=== PATIENT | female | born 1950 | race American Indian/Alaskan Native ===

== ENCOUNTER 2018-12-08 13:03 | Emergency (ER) | payer MEDICAID | END 2018-12-08 15:22 | disposition home or self-care (01) | LOC: C.ER 13:03 ==

== ENCOUNTER 2019-01-10 09:02 | Observation (INO) | payer MEDICAID, OTHER ==
[2019-01-10 09:03] VITALS: BMI 36.6
[2019-01-10 09:23] VITALS: RESP 20
[2019-01-10] MEDS ORDERED: Iohexol 240 (50 ml) PO STA (09:41)
[2019-01-10] MEDS ORDERED: Iohexol 240 (50 ml) ONE (10:22)
[2019-01-10] MEDS ORDERED: Sodium Chloride 0.9% 1,000 ML IV ONE ×2 (10:26→14:12)
[2019-01-10] MEDS ORDERED: Sodium Chloride 0.9% 1,000 ML ONE ×2 (10:34→14:18)
--- NOTE | 2019-01-10 10:39 | C.PDOC ---
History Of Present Illness 68 year old female presents to the ED for evaluation of worsening abdominal pain and distension for the past 2-3 months. She reports history of uterine/ovarian cancer, diagnosed 1 year ago, which recently was found to have spread to her colon. Patient reports decreased appetite for the past week and has been feeling constipated and generally weak. Also states she has been feeling increasingly dehydrated. She denies any difficulty swallowing but attributes her decreased PO intake to poor appetite. She denies any chest pain, dizziness, nausea, vomiting, diarrhea, calf pain/swelling, or other complaints. Time Seen by Provider: 01/10/19 09:24 Chief Complaint (Nursing): Abdominal Pain History Per: Patient History/Exam Limitations: no limitations Onset/Duration Of Symptoms: Days Current Symptoms Are (Timing): Still Present Associated Symptoms: Loss Of Appetite, Constipation, Other (Bloating) Last Bowel Movement: Today Past Medical History Reviewed: Historical Data, Nursing Documentation, Vital Signs Vital Signs: Last Vital Signs Temp 99.2 F 01/10/19 09:17 Pulse 124 H 01/10/19 09:17 Resp 20 01/10/19 09:17 BP 128/81 01/10/19 09:17 Pulse Ox 97 01/10/19 09:17 - Medical History PMH: Malignancy (Ovarian/Uterine CA) Other Surgeries: Hysterectomy Family History: States: Unknown Family Hx - Social History Hx Alcohol Use: No Hx Substance Use: No - Immunization History Hx Tetanus Toxoid Vaccination: No Hx Influenza Vaccination: Yes Hx Pneumococcal Vaccination: Yes Review Of Systems Except As Marked, All Systems Reviewed And Found Negative. Constitutional: Positive for: Weakness (generalized). Negative for: Fever, Chills Cardiovascular: Negative for: Chest Pain Respiratory: Negative for: Cough, Shortness of Breath Gastrointestinal: Positive for: Abdominal Pain (and bloating), Constipation, Other (Decreased appetite). Negative for: Vomiting, Diarrhea Genitourinary: Negative for: Dysuria, Frequency Skin: Negative for: Rash Neurological: Negative for: Change in Speech, Confusion, Headache, Dizziness Physical Exam - Physical Exam Appears: No Acute Distress, Chronically Ill Skin: Warm, Dry, No Rash Head: Atraumatic, Normacephalic Eye(s): bilateral: Normal Inspection, PERRL, EOMI Oral Mucosa: Dry Throat: No Erythema, No Exudate Neck: Normal ROM, Supple Chest: Symmetrical Cardiovascular: Rhythm Regular, No Friction Rub, No Murmur Respiratory: Normal Breath Sounds, No Accessory Muscle Use, No Wheezing Gastrointestinal/Abdominal: Soft, Tenderness (mild diffuse), Mass (+ palpable mass in periumbilical region), Distention (abdomen is moderately distended) Back: No CVA Tenderness, No Vertebral Tenderness Extremity: Normal ROM, No Tenderness, No Swelling Extremity: Bilateral: Atraumatic, No Pedal Edema, Normal Color And Temperature Pulses: Left Dorsalis Pedis: Normal, Right Dorsalis Pedis: Normal Neurological/Psych: Oriented x3, Normal Speech, Normal Motor Gait: Steady ED Course And Treatment - Laboratory Results Result Diagrams: 01/10/19 10:46 01/10/19 10:46 O2 Sat by Pulse Oximetry: 97 (RA) Pulse Ox Interpretation: Normal - CT Scan/US CT Abdomen/Pelvis Other Rad Studies (CT/US): Read By Radiologist, Radiology Report Reviewed CT/US Interpretation: Accession No. : [id number]. Patient Name / ID : LINCOLN SHOOK / [id number]. Exam Date : 01/10/2019 13:11:34 ( Approved ). Study Comment : Sex / Age : F / 68Y. Creator : Paola Le. Dictator : Terrence Espinoza MD. Machine Group Leader : Technical Administrative Assistant : Terrence Espinoza MD. Approver2 : Report Date : 01/10/2019 13:38:22. My Comment : . Date of service: 01/10/2019. PROCEDURE: CT Abdomen and Pelvis with contrast. HISTORY: distended, diffuse pain, constipation, r/o obstruc. COMPARISON: None. TECHNIQUE: Contrast dose: Radiation dose: Total exam DLP = 1174.44 mGy-cm. This CT exam was performed using one or more of the following dose reduction techniques: Automated exposure control, adjustment of the mA and/or kV according to patient size, and/or use of iterative reconstruction technique. FINDINGS: LOWER THORAX: Unremarkable. LIVER: 7 millimeter left hepatic hypodensity, nonspecific. No gross lesion or ductal dilatation. GALLBLADDER AND BILE DUCTS: Gallstones. PANCREAS: Unremarkable. No gross l esion or ductal dilatation. SPLEEN: Unremarkable. ADRENALS: Unremarkable. No mass. KIDNEYS AND URETERS: Mild bilateral caliectasis, right greater than left with a 2.2 centimeter right upper pole renal cyst. VASCULATURE: Unremarkable. No aortic aneurysm. No aortic atherosclerotic calcification or mural plaque present. BOWEL: Unremarkable. No obstruction. No gross mural thickening. APPENDIX: Normal appendix. PERITONEUM: Abdominal ascites. 5.3 centimeter long cystic lesion in the left hemipelvis anterior to the left psoas muscle. Multiple mesenteric masses measuring up to 6.2 centimeters in the left upper quadrant, as well as large anterior abdominal wall cavitary masses measuring up to 9.3 x 5.8 centimeters in conglomerate size protruding through the anterior abdominal wall hernia defect. LYMPH NODES: Unremarkable. No enlarged lymph nodes. BLADDER: Unremarkable. REPRODUCTIVE: Status post hysterectomy and bilateral salpingo oophorectomy with an 8.3 x 7.3 centimeter cystic complex mass in the pelvis which could represent residual/recurrent tumor. BONES: No acute fracture. OTHER FINDINGS: None. IMPRESSION: Multiple intraperitoneal masses and ascites consistent with peritoneal carcinomatosis. Large pelvic mass measuring 7.3 x 8.3 centimeters in the postoperative site status post hysterectomy. No bowel obstruction. Medical Decision Making Medical Decision Making: Initial Plan: - Blood work - Urinalysis - CT Abd/Pelvis with contrast - 4 mg IV Zofran - 1L IV fluids - Reassess Reassessment:Patient resting comfortably in bed and tolerating PO. 1429: 's service called. 1451: Called Dr. Wilburn. Dr. Wilburn answered and agreed to admit patient. Disposition - Disposition Disposition: HOSPITALIZED Disposition Time: 14:00 Condition: GUARDED - POA Present On Arrival: None - Clinical Impression Clinical Impression: Abdominal pain, Ascites, Weakness - PA / SECURITY AMBASSADOR / Resident Statement MD/DO has reviewed & agrees with the documentation as recorded. - Scribe Statement The provider has reviewed the documentation as recorded by the Madhav Mcmahon All medical record entries made by the Madhav were at my direction and personally dictated by me. I have reviewed the chart and agree that the record accurately reflects my personal performance of the history, physical exam, medical decision making, and the department course for this patient. I have also personally directed, reviewed, and agree with the discharge instructions and disposition.
[2019-01-10 10:57] LABS: BASO % 0.3 % (0.0-2.0); EOS % 0.3 % (0.0-4.0); HEMOGLOBIN 9.5 g/dL (11.0-16.0); LYMPH # 0.3 K/uL (1.0-4.3); LYMPH % 3.2 % (20.0-40.0); MEAN CELL VOLUME 83.3 fL (81.0-99.0); MEAN CORPUSCULAR HEMOGLOBIN 28.1 pg (27.0-31.0); MEAN CORPUSCULAR HGB CONC 33.8 g/dL (33.0-37.0); MEAN PLATELET VOLUME 7.5 fL (7.2-11.7); MONO # 0.6 K/uL (0.0-0.8); MONO % 7.2 % (0.0-10.0); NEUT # 7.9 K/uL (1.8-7.0); PLATELET COUNT 154 K/uL (130-400); RBC 3.39 Mil/uL (3.80-5.20); RED CELL DISTRIBUTION WIDTH 17.3 % (11.5-14.5); WHITE BLOOD COUNT 8.8 K/uL (4.8-10.8)
[2019-01-10 11:17] LABS: ALB/GLOB RATIO 0.9 (1.0-2.1); ALBUMIN 3.3 g/dL (3.5-5.0); ANISOCYTOSIS SLIGHT; AST/SGOT 52 U/L (14-36); BANDS 6 % (0-2); BLOOD UREA NITROGEN 15 mg/dL (7-17); CALCIUM 9.1 mg/dl (8.6-10.4); GFR NON-AFRICAN AMERICAN > 60; LIPASE 10 U/L (23-300); LYMPHOCYTE 6 % (20-40); MONOCYTE 8 % (0-10); NEUTROPHIL 80 % (50-75); NUCLEATED RED BLOOD CELL 1 % (0-0); PLATELET ESTIMATE NORMAL (NORMAL); TOTAL CELLS COUNTED 100
[2019-01-10 11:18] LABS: OVALOCYTES SLIGHT
[2019-01-10 11:28] LABS: ALT/SGPT 44 U/L (9-52)
[2019-01-10] MEDS ORDERED: Iodixanol 320 MG/ML 100 ML BOTTLE IV ONE (12:19)
[2019-01-10] MEDS ORDERED: Morphine 4 MG/ML VIAL ONE (12:19)
--- NOTE | 2019-01-10 14:10 | CT ---
Date of service: 01/10/2019 PROCEDURE: CT Abdomen and Pelvis with contrast HISTORY: distended, diffuse pain, constipation, r/o obstruc COMPARISON: None. TECHNIQUE: Contrast dose: Radiation dose: Total exam DLP = 1174.44 mGy-cm. This CT exam was performed using one or more of the following dose reduction techniques: Automated exposure control, adjustment of the mA and/or kV according to patient size, and/or use of iterative reconstruction technique. FINDINGS: LOWER THORAX: Unremarkable. LIVER: 7 millimeter left hepatic hypodensity, nonspecific. No gross lesion or ductal dilatation. GALLBLADDER AND BILE DUCTS: Gallstones. PANCREAS: Unremarkable. No gross lesion or ductal dilatation. SPLEEN: Unremarkable. ADRENALS: Unremarkable. No mass. KIDNEYS AND URETERS: Mild bilateral caliectasis, right greater than left with a 2.2 centimeter right upper pole renal cyst. VASCULATURE: Unremarkable. No aortic aneurysm. No aortic atherosclerotic calcification or mural plaque present. BOWEL: Unremarkable. No obstruction. No gross mural thickening. APPENDIX: Normal appendix. PERITONEUM: Abdominal ascites. 5.3 centimeter long cystic lesion in the left hemipelvis anterior to the left psoas muscle. Multiple mesenteric masses measuring up to 6.2 centimeters in the left upper quadrant, as well as large anterior abdominal wall cavitary masses measuring up to 9.3 x 5.8 centimeters in conglomerate size protruding through the anterior abdominal wall hernia defect. LYMPH NODES: Unremarkable. No enlarged lymph nodes. BLADDER: Unremarkable. REPRODUCTIVE: Status post hysterectomy and bilateral salpingo oophorectomy with an 8.3 x 7.3 centimeter cystic complex mass in the pelvis which could represent residual/recurrent tumor. BONES: No acute fracture. OTHER FINDINGS: None. IMPRESSION: Multiple intraperitoneal masses and ascites consistent with peritoneal carcinomatosis. Large pelvic mass measuring 7.3 x 8.3 centimeters in the postoperative site status post hysterectomy. No bowel obstruction.
[2019-01-10 15:34] LABS: B-TYPE NATRIURETIC PEPTIDE 191 pg/mL (0-900)
[2019-01-10] MEDS ORDERED: Oxycodone/Acetaminophen 5/325 mg Tab PO PRN (17:54)
[2019-01-11] MEDS: Enoxaparin 40 mg Syringe SC SCH (09:46)
--- NOTE | 2019-01-11 10:53 | CP.PCM.PCO ---
Physician Communication Note - Physician Communication Note Physician Communication Note: I spoke with Dr. Craig covering Dr. Wilburn, requesting for change of
--- NOTE | 2019-01-11 12:07 | CP.PCM.HP ---
<Randy Butler - Last Filed: 01/11/19 15:21> History of Present Illness - History of Present Illness History of Present Illness: HOSPITALIST SERVICE HPI: 68F pmhx of Ovarian CA w/ Mets admitted for abdominal distention and worsening abdominal pain over the last 2 months. She first noticed this a few months ago and was told by her Oncologist Dr Ryan @ [facility] that it is due to the lymphnodes in her abdomen. Patient has been taking percocet and a fentan yl patch for pain control associated with her cancer. She has been limiting herself to just a liquid diet but now would like to try solid foods. Pt also complains of mild vaginal bleeding that is chronic sin 2016. All of her medical care was at [facility] in [facility]. Pt was diagnosed with small uterine fibroids many years ago and was monitoring them intermittently. In 2016 she was diagnosed with Ovarian Ca and had a hysterectomy. Pt underwent her first round of chemo this past month. Pt says she has always been compliant with medical follow ups and was never with any chronic illness. has had 3 normal colonoscopies and many normal mammograms in the past as per pt. Denies past abnormal pap smears. ROS: Pos + abd pain/distention, chronic vaginal bleeding, hx of cancer, recent chem, liquid diet, weight gain Neg- CP, SOB, FC, NV, blood in urine/stool, syncope, numbness, weakness, hair loss, constipation PMD: Dr Ryan heme/onc @ [facility] PMHx: Ovarian Ca, Carcinomatosis PSx: Hysterectomy Nov 2015 SocHx: denies smoking etoh or drug use, Aller: NKDA Home Rx: none except chemo- doesn't know the name Code Status: wishes to discuss with her family and palliative care Daughter: Orin [phone] Present on Admission - Present on Admission Any Indicators Present on Admission: No Review of Systems - Review of Systems All systems: reviewed and no additional remarkable complaints except (as per HPI) Past Patient History - Past Social History Smoking Status: Never Smoked - GENITOURINARY/GYNECOLOGICAL Hx Genitourinary Disorders: Yes Hx Uterine Cancer: Yes Other/Comment: VULVA CA - PSYCHIATRIC Hx Substance Use: No - SURGICAL HISTORY Hx Surgeries: Yes Hx Hysterectomy: Yes Other/Comment: ectopic 1981 - ANESTHESIA Hx Anesthesia: Yes Hx Anesthesia Reactions: No Hx Malignant Hyperthermia: No Meds Allergies/Adverse Reactions: Allergies Allergy/AdvReac Type Severity Reaction Status Date / Time No Known Allergies Allergy Verified 01/10/19 09:23 Physical Exam - Constitutional Appears: No Acute Distress, Chronically Ill - Head Exam Head Exam: ATRAUMATIC, NORMAL INSPECTION - Eye Exam Eye Exam: EOMI, Normal appearance, PERRL. absent: Periorbital swelling, Scleral icterus Pupil Exam: NORMAL ACCOMODATION, PERRL - ENT Exam ENT Exam: Mucous Membranes Moist, Normal Exam - Neck Exam Neck exam: Positive for: Normal Inspection. Negative for: Lymphadenopathy, Tenderness, Thyromegaly - Respiratory Exam Respiratory Exam: Clear to Auscultation Bilateral. absent: Wheezes, Respiratory Distress - Cardiovascular Exam Cardiovascular Exam: RRR, +S1, +S2 - GI/Abdominal Exam GI & Abdominal Exam: Distended (mild fluid wave, large palpable mas noted in v entral hernia, mobile, midline above umbilicus), Organomegaly. absent: Pulsatile Mass, Rebound, Rigid Additional comments: Ultrasound: No large fluid collections noted - Extremities Exam Extremities exam: Positive for: normal inspection, pedal pulses present. Negative for: joint swelling - Back Exam Back exam: absent: paraspinal tenderness - Neurological Exam Neurological exam: Alert, CN II-XII Intact, Oriented x3 - Psychiatric Exam Psychiatric exam: Anxious - Skin Skin Exam: Dry, Intact, Normal Color, Warm Results - Vital Signs Recent Vital Signs: Last Vital Signs Temp 97.9 F 01/11/19 07:00 Pulse 100 H 01/11/19 07:00 Resp 20 01/11/19 07:00 BP 148/83 01/11/19 07:00 Pulse Ox 95 01/11/19 07:00 - Labs Result Diagrams: 01/10/19 10:46 01/10/19 10:46 Labs: Laboratory Results - last 24 hr 01/10/19 10:46 Sodium 135 Potassium 4.2 Chloride 95 L Carbon Dioxide 32 H Anion Gap 13 BUN 15 Creatinine 0.8 Est GFR ( Amer) > 60 Est GFR (Non-Af Amer) > 60 Random Glucose 130 H Calcium 9.1 Total Bilirubin 0.6 AST 52 H D ALT 44 Alkaline Phosphatase 201 H D Troponin I < 0.0120 NT-Pro-B Natriuret Pep 191 Total Protein 7.0 Albumin 3.3 L Globulin 3.8 Albumin/Globulin Ratio 0.9 L Lipase 10 L Assessment & Plan - Assessment and Plan (Free Text) Assessment: 68F pmhx of Ovarian Ca admitted for abdominal pain with distention Plan: Abdominal Pain w/ Distention -Fentanyl Patch -Percocet q4 PRN -1/2 NS @50 -Zofran 4mg Q4 IVP -Palliative Care consulted -Dr Kemp Heme/Onc consulted: f/u recs -CT Abd Pelv w/ Cont: Carcinomatosis w/ multiple large masses, largest is 9x6cm protruding through ventral hernia, others including 8x7cm and a 6cm -Bedside U/S: no fluid collections seen -CXR: f/u -f/u CA antigen levels and AM Labs -for CT Head Neck Chest w/ contrast tmw @ 4pm -advancing diet as tolerated Ovarian Cancer with Metastasis -Dr Kemp Consulted f/u recs -f/u with her home Heme/Onc Dr Ryan on chemo regimen -f/u with Palliative Care -continue pain control PPx -Lovenox 40 daily -Regular diet Dispo: f/u with daughter Orin, Dr Ryan, for CT w/ contrast tmrw [facility] PGY1 d/w Dr Bojorquez <George Bojorquez H - Last Filed: 01/11/19 16:16> Results - Vital Signs Recent Vital Signs: Last Vital Signs Temp 98.2 F 01/11/19 15:00 Pulse 102 H 01/11/19 15:00 Resp 20 01/11/19 15:00 BP 131/81 01/11/19 15:00 Pulse Ox 95 01/11/19 15:00 - Labs Result Diagrams: 01/10/19 10:46 01/10/19 10:46 Attending/Attestation - Attestation I have personally seen and examined this patient.: Yes I have fully participated in the care of the patient.: Yes I have reviewed all pertinent clinical information: Yes Notes (Text): Medical attending: Patient was seen and examined by me. Agree with the above note by the resident The patient was crying when we came and spoke to her and we spoke to her at length Patient was a transfer to the hospitalist service because she did not have insurance Initially I was told there was ascities and she would need a paracentesis however I reviewed the CT of the abdomen and there is minimal ascities fluid and instead the patient has several very large and suspicious abdominal mass. We also checked with a bedside ultrasound and there is minial abdominal fluid Per discussion with the patient she was being treated in [place] for ovarian CA. And later the charter boat operator oncologist there was able to get back to us and explained that the prognosis is very poor She has never had an admission to [facility] so will also check a CT of the chest and CT of the neck and Head tomorrow We are getting a palliative care consult to talk to the patient about DNR/DNI Family was notified George Bojorquez
[2019-01-11] MEDS: Oxycodone/Acetaminophen 5/325 mg Tab PO PRN ×2 (13:45→22:06)
[2019-01-11] MEDS ORDERED: Sodium Chloride 0.45% 1,000 ML IV ONE (14:28)
--- NOTE | 2019-01-11 14:45 | RAD ---
Date of service: 01/11/2019 HISTORY: admission COMPARISON: No prior. FINDINGS: LUNGS: No active pulmonary disease. PLEURA: No significant pleural effusion identified, no pneumothorax apparent. CARDIOVASCULAR: No atherosclerotic calcification present No radiographic findings to suggest acute or significant cardiovascular disease. Venous access catheter in satisfactory position. OSSEOUS STRUCTURES: No significant abnormalities. VISUALIZED UPPER ABDOMEN: Normal. OTHER FINDINGS: None. IMPRESSION: No active disease. Satisfactory position of recently placed venous access catheter.
[2019-01-12 06:39] LABS: BASO % 0.3 % (0.0-2.0); EOS % 0.7 % (0.0-4.0); HEMOGLOBIN 8.4 g/dL (11.0-16.0); LYMPH # 0.5 K/uL (1.0-4.3); LYMPH % 7.1 % (20.0-40.0); MEAN CELL VOLUME 82.3 fL (81.0-99.0); MEAN CORPUSCULAR HEMOGLOBIN 27.5 pg (27.0-31.0); MEAN CORPUSCULAR HGB CONC 33.4 g/dL (33.0-37.0); MEAN PLATELET VOLUME 7.7 fL (7.2-11.7); MONO # 0.7 K/uL (0.0-0.8); NEUT # 5.6 K/uL (1.8-7.0); NEUT % 81.9 % (50.0-75.0); NRBC % 0.2 % (0.0-2.0); PLATELET COUNT 159 K/uL (130-400); RBC 3.04 Mil/uL (3.80-5.20); RED CELL DISTRIBUTION WIDTH 17.6 % (11.5-14.5); WHITE BLOOD COUNT 6.9 K/uL (4.8-10.8)
[2019-01-12 07:16] LABS: SQUAMOUS EPITHIAL < 1 /hpf (0-5); URINE BACTERIA MANY (<OCC); URINE BILIRUBIN NEGATIVE (NEGATIVE); URINE BLOOD 2+ (NEGATIVE); URINE CLARITY Hazy (Clear); URINE COLOR Amber (YELLOW); URINE GLUCOSE (UA) NORMAL (Normal); URINE LEUKOCYTE ESTERASE 3+ Leu/uL (Negative); URINE PROTEIN 2+ mg/dL (NEGATIVE); URINE UROBILINOGEN NORMAL mg/dL (0.2-1.0); WBC CLUMPS MOD /hpf
[2019-01-12 07:27] LABS: ALB/GLOB RATIO 0.8 (1.0-2.1); ALT/SGPT < 6 U/L (9-52); AST/SGOT 59 U/L (14-36); BLOOD UREA NITROGEN 13 mg/dL (7-17); CALCIUM 8.8 mg/dl (8.6-10.4); GFR NON-AFRICAN AMERICAN > 60
--- NOTE | 2019-01-12 07:51 | CP.PCM.PN ---
<Randy Butler - Last Filed: 01/12/19 16:38> Subjective - Date & Time of Evaluation Date of Evaluation: 01/12/19 Time of Evaluation: 07:51 - Subjective Subjective: HOSPITALIST SERVICE Pt s/e at bedside, complains of persistent abdominal pain Objective - Vital Signs/Intake and Output Vital Signs (last 24 hours): Temp Pulse Resp BP Pulse Ox 98.3 F 107 H 20 122/75 100 01/12/19 07:36 01/12/19 07:36 01/12/19 07:36 01/12/19 07:36 01/12/19 07:36 Intake and Output: 01/12/19 01/12/19 06:59 18:59 Intake Total 640 Balance 640 - Medications Medications: Current Medications Enoxaparin Sodium (Lovenox) 40 mg SC DAILY [facility] Last Admin: 01/11/19 09:46 Dose: 40 mg Fentanyl (Duragesic) 1 patch TD Q72H [facility] Last Admin: 01/10/19 18:37 Dose: 1 patch Sodium Chloride (Sodium Chloride 0.45%) 1,000 mls @ 50 mls/hr IV .Q20H ONE Stop: 01/12/19 10:27 Last Admin: 01/11/19 14:42 Dose: 50 mls/hr Ondansetron HCl (Zofran Inj) 4 mg IVP Q4 PRN PRN Reason: Nausea/Vomiting Oxycodone/Acetaminophen (Percocet 5/325 Mg Tab) 1 tab PO Q4 PRN PRN Reason: Pain, moderate (4-7) Stop: 01/14/19 16:01 Last Admin: 01/11/19 22:06 Dose: 1 tab - Labs Labs: 01/12/19 06:36 01/12/19 06:36 - Additional Findings Additional findings: - Constitutional Appears: No Acute Distress, Chronically Ill - Head Exam Head Exam: ATRAUMATIC, NORMAL INSPECTION - Eye Exam Eye Exam: EOMI, Normal appearance, PERRL. absent: Periorbital swelling, Scleral icterus Pupil Exam: NORMAL ACCOMODATION, PERRL - ENT Exam ENT Exam: Mucous Membranes Moist, Normal Exam - Neck Exam Neck exam: Positive for: Normal Inspection. Negative for: Lymphadenopathy, Tenderness, Thyromegaly - Respiratory Exam Respiratory Exam: Clear to Auscultation Bilateral. absent: Wheezes, Respiratory Distress - Cardiovascular Exam Cardiovascular Exam: RRR, +S1, +S2 - GI/Abdominal Exam GI & Abdominal Exam: Distended (mild fluid wave, large palpable mas noted in ventral hernia, mobile, midline above umbilicus), Organomegaly. absent: Pulsatile Mass, Rebound, Rigid Additional comments: Ultrasound: No large fluid collections noted - Extremities Exam Extremities exam: Positive for: normal inspection, pedal pulses present. Negative for: joint swelling - Back Exam Back exam: absent: paraspinal tenderness - Neurological Exam Neurological exam: Alert, CN II-XII Intact, Oriented x3 - Psychiatric Exam Psychiatric exam: Anxious - Skin Skin Exam: Dry, Intact, Normal Color, Warm Assessment and Plan - Assessment and Plan (Free Text) Assessment: 68F pmhx of Ovarian Ca admitted for abdominal pain with distention Plan: Abdominal Pain w/ Distention -Fentanyl Patch -Oxycodone 10mg q4 PRN -Tylenol 325mg q4 PRN -1/2 NS @50 -Zofran 4mg Q4 IVP -Palliative Care consulted -Dr Kemp Heme/Onc consulted: f/u recs -CT Abd Pelv w/ Cont: Carcinomatosis w/ multiple large masses, largest is 9x6cm protruding through ventral hernia, others including 8x7cm and a 6cm -Bedside U/S: no fluid collections seen -CXR: no active disease, portacath in place -f/u CA antigen levels and AM Labs -for CT Head Neck Chest w/ contrast today @ 4pm -advancing diet as tolerated Ovarian Cancer with Metastasis -Dr Kemp Consulted f/u recs -home Heme/Onc Dr Ryan on chemo regimen Pt was dx with Uterine Carncinosarcoma had tried lipozomal doxirubicin-doxil , however this is likely only a palliative measure, this was only a "stealth" treatment at 75% of therapeutic dose. Patient was previously seen and was told to consider hospice care. Pt wanted to try one round of therapy, Onc agreed and would attempt one round to see if epithelial lesions would shrink for comfort measures. please contact Dr Ryan upon discharge for recs -Palliative Care consulted: pt is still full code -continue pain control PPx -Lovenox 40 daily -Regular diet Dispo: CT w/ contrast today, f/u results and possible home comfort care upon dc [facility] PGY1 d/w Dr Bojorquez <George Bojorquez H - Last Filed: 01/12/19 17:14> Objective - Vital Signs/Intake and Output Vital Signs (last 24 hours): Temp Pulse Resp BP Pulse Ox 99 F 111 H 20 128/74 98 01/12/19 16:00 01/12/19 16:00 01/12/19 16:00 01/12/19 16:00 01/12/19 16:00 Intake and Output: 01/12/19 01/12/19 06:59 18:59 Intake Total 640 750 Balance 640 750 - Medications Medications: Current Medications Acetaminophen (Tylenol 325mg Tab) 325 mg PO Q4 PRN PRN Reason: Pain, moderate (4-7) Enoxaparin Sodium (Lovenox) 40 mg SC DAILY [facility] Last Admin: 01/12/19 11:15 Dose: 40 mg Fentanyl (Duragesic) 1 patch TD Q72H [facility] Last Admin: 01/10/19 18:37 Dose: 1 patch Ceftriaxone Sodium 1 gm/ (Sodium Chloride) 100 mls @ 100 mls/hr IVPB DAILY [facility]; Protocol Lactulose (Enulose) 20 gm PO ONCE ONE Stop: 01/13/19 13:31 Ondansetron HCl (Zofran Inj) 4 mg IVP Q4 PRN PRN Reason: Nausea/Vomiting Oxycodone HCl (Oxycontin Extended Release Tab) 10 mg PO Q4 PRN PRN Reason: Pain, severe (8-10) Stop: 01/15/19 13:21 - Labs Labs: 01/12/19 06:36 01/12/19 06:36 Attending/Attestation - Attestation I have personally seen and examined this patient.: Yes I have fully participated in the care of the patient.: Yes I have reviewed all pertinent clinical information, including history, physical exam and plan: Yes Notes (Text): 01/12/19 16:59 Medical attending: Patient was seen and examined by me. Agree with the above note by the resident The patient was not as anxious or tearful like she was yesterday. She explained that she still had abominal pain - and so we made further increases of the pain medication. Also we are pending the CT scan of the head, neck and of the chest to see if there has been additional spread of the cancer The overall prognosis is not good. Patient is aware of this. Palliative care evaluation, hopefully hospice since the cancer is so advanced George Bojorquez
[2019-01-12] MEDS ORDERED: Tmp-Smz 800 mg-160 mg DS Tab PO SCH (10:00)
[2019-01-12 10:22] LABS: ANISOCYTOSIS SLIGHT; BANDS 6 % (0-2); LYMPHOCYTE 4 % (20-40); MONOCYTE 8 % (0-10); NEUTROPHIL 82 % (50-75); PLATELET ESTIMATE NORMAL (NORMAL); TOTAL CELLS COUNTED 100
[2019-01-12 10:23] LABS: HYPOCHROMIC SLIGHT
--- NOTE | 2019-01-12 10:43 | CP.PCM.CON ---
History of Present Illness - History of Present Illness History of Present Illness: Palliative consult requested by Doctor Carrie for goals of care discussion Patient is a 68 yo female admitted from home with worsening abdominal pain and distention. These symptoms begun about 2 moths ago but got worse over time. Patient reported loss of appetite X 1 week, and feeling dehydrated. Patient has experienced vaginal bleeding which is subsiding after the last chemo Tx this week. On admission Hb9.5 and 8.4 today. Patient was treated last year with chemo Tx and radiation therapy for newly diagnosed uterine/ovarian cancer. Cancer reoccurred and patient is treated with new session of Chemo Tx. 1st dose of chemo was this week, just prior to admission. Patient is treated by her Oncologist in [place]. She would like her record to be transferred to [facility] for continuing treatment here. CT abdomen: large pelvic mass, multiple intraperitoneal masses PMH: ovarian/uterine cancer with mets to liver, diagnosed last year, S/P chemo and radiation Tx Soc. Hx: single, unemployed, has no health insurance, lives at home with adult children, children work , patient is home alone for most of the day Fam. Hx: denies Hx of cancer Review of Systems - Constitutional Constitutional: Fatigue, Weakness - EENT Eyes: absent: As Per HPI, Blind Spots, Blurred Vision, Change in Vision, Decreased Night Vision, Diplopia, Discharge, Dry Eye, Exophthalmos, Floaters, Irritation, Itchy Eyes, Loss of Peripheral Vision, Pain, Photophobia, Requires Corrective Lenses, Sees Flashes, Spots in Vision, Tunnel Vision, Other Visual Disturbances, Loss of Vision, Other Ears: absent: As Per HPI, Decreased Hearing, Ear Discharge, Ear Pain, Tinnitus, Abnormal Hearing, Disequilibrium, Dizziness, Other Nose/Mouth/Throat: Dry Mouth Additional comments: lost food tasting ability - Breasts Breasts: absent: As Per HPI, Change in Shape, Mass, Pain, Nipple Discharge, Nipple Inversion, Skin Changes, Swelling, Other - Cardiovascular Cardiovascular: absent: As Per HPI, Acrocyanosis, Chest Pain, Chest Pain at Rest, Chest Pain with Activity, Claudication, Diaphoresis, Dyspnea, Dyspnea on Exertion, Edema, Irregular Heart Rhythm, Pain Radiating to Arm/Neck/Jaw, Leg Edema, Leg Ulcers, Lightheadedness, Orthopnea, Palpitations, Paroxysmal Nocturnal Dyspnea, Pedal Edema, Radiating Pain, Rapid Heart Rate, Slow Heart Rate, Syncope, Other - Respiratory Respiratory: absent: As Per HPI, Cough, Dyspnea, Hemoptysis, Dyspnea on Exertion, Wheezing, Snoring, Stridor, Pain on Inspiration, Chest Congestion, Excessive Mucous Production, Change in Mucous Color, Pain with Coughing, Other - Gastrointestinal Gastrointestinal: Bloating, Change in Bowel Habits - Genitourinary Genitourinary: absent: As Per HPI, Change in Urinary Stream, Difficulty Urinating, Dysuria, Flank Pain, Hematuria, Pyuria, Nocturia, Urinary Incontinence, Urinary Frequency, Urinary Hesitance, Urinary Urgency, Voiding Freq/Small Amts, Freq UTI, Hx Renal/Bladder Calculi, Hx /Renal Surgery, Bladder Distension, Other - Reproductive: Female Reproductive:Female: Post Menopausal, Abnormal Vaginal Bleeding - Menstruation Menstruation: Post Menopausal, Abnormal Vaginal Bleeding - Musculoskeletal Musculoskeletal: Muscle Weakness - Integumentary Integumentary: Dry Skin - Neurological Neurological: absent: As Per HPI, Abnormal Gait, Abnormal Hearing, Abnormal Movements, Abnormal Speech, Behavioral Changes, Burning Sensations, Confusion, Convulsions, Disequilibrium, Dizziness, Numbness, Focal Weakness, Frequent Falls, Headaches, Lack of Coordination, Loss of Vision, Memory Loss, Paresthesias, Radicular Pain, Restless Legs, Sensory Deficit, Syncope, Tingling, Tremor, Vertigo, Weakness, Other Visual Disturbances, Other - Psychiatric Psychiatric: Anxiety, Depression, Hopelessness - Endocrine Endocrine: absent: As Per HPI, Change in Body Appearance, Change in Libido, Cold Intolorance, Deepening of Voice, Excessive Sweating, Fatigue, Flushing, Heat Intolorance, Increase in Ring/Shoe/Hat Size, Palpitations, Polydipsia, Polyphagia, Polyuria, Other - Hematologic/Lymphatic Hematologic: Easy Bleeding Additional comments: vaginal bleeding Past Patient History - Past Social History Smoking Status: Never Smoked - GENITOURINARY/GYNECOLOGICAL Hx Genitourinary Disorders: Yes Hx Uterine Cancer: Yes Other/Comment: VULVA CA - PSYCHIATRIC Hx Substance Use: No - SURGICAL HISTORY Hx Surgeries: Yes Hx Hysterectomy: Yes Other/Comment: ectopic 1981 - ANESTHESIA Hx Anesthesia: Yes Hx Anesthesia Reactions: No Hx Malignant Hyperthermia: No Meds Allergies/Adverse Reactions: Allergies Allergy/AdvReac Type Severity Reaction Status Date / Time No Known Allergies Allergy Verified 01/10/19 09:23 - Medications Medications: Current Medications Enoxaparin Sodium (Lovenox) 40 mg SC DAILY [facility] Last Admin: 01/11/19 09:46 Dose: 40 mg Fentanyl (Duragesic) 1 patch TD Q72H [facility] Last Admin: 01/10/19 18:37 Dose: 1 patch Ondansetron HCl (Zofran Inj) 4 mg IVP Q4 PRN PRN Reason: Nausea/Vomiting Oxycodone/Acetaminophen (Percocet 5/325 Mg Tab) 1 tab PO Q4 PRN PRN Reason: Pain, moderate (4-7) Stop: 01/14/19 16:01 Last Admin: 01/11/19 22:06 Dose: 1 tab Trimethoprim/Sulfamethoxazole (Bactrim Ds Tab) 1 tab PO Q12 [facility]; Protocol Physical Exam - Constitutional Appears: No Acute Distress, Chronically Ill - Head Exam Head Exam: ATRAUMATIC, NORMAL INSPECTION, NORMOCEPHALIC - ENT Exam ENT Exam: Mucous Membranes Moist, Normal Exam Additional comments: loss of taste - Neck Exam Neck exam: Positive for: Normal Inspection - Respiratory Exam Respiratory Exam: Decreased Breath Sounds, NORMAL BREATHING PATTERN - Cardiovascular Exam Cardiovascular Exam: Tachycardia, REGULAR RHYTHM - GI/Abdominal Exam GI & Abdominal Exam: Distended, Firm, Guarding, Hypoactive Bowel Sounds, Tenderness - Rectal Exam Rectal Exam: Deferred - Extremities Exam Extremities exam: Positive for: normal inspection, pedal edema - Back Exam Back exam: NORMAL INSPECTION - Neurological Exam Neurological exam: Abnormal Gait, Alert, Oriented x3 - Psychiatric Exam Psychiatric exam: Depressed - Skin Skin Exam: Dry, Intact, Pallor, Warm Results - Vital Signs Recent Vital Signs: Last Vital Signs Temp 98.3 F 01/12/19 07:36 Pulse 107 H 01/12/19 07:36 Resp 20 01/12/19 07:36 BP 122/75 01/12/19 07:36 Pulse Ox 100 01/12/19 07:36 - Labs Result Diagrams: 01/12/19 06:36 01/12/19 06:36 Labs: Laboratory Results - last 24 hr 01/12/19 01/12/19 01/12/19 06:36 06:36 07:05 WBC 6.9 RBC 3.04 L Hgb 8.4 L Hct 25.0 L MCV 82.3 MCH 27.5 MCHC 33.4 RDW 17.6 H Plt Count 159 MPV 7.7 Neut % (Auto) 81.9 H Lymph % (Auto) 7.1 L [place] % (Auto) 10.0 Eos % (Auto) 0.7 Baso % (Auto) 0.3 Neut # (Auto) 5.6 Lymph # (Auto) 0.5 L [place] # (Auto) 0.7 Eos # (Auto) 0.0 Baso # (Auto) 0.0 Neutrophils % (Manual) 82 H Band Neutrophils % 6 H Lymphocytes % (Manual) 4 L Monocytes % (Manual) 8 Platelet Estimate Normal Hypochromasia (manual) Slight Anisocytosis (manual) Slight Sodium 132 Potassium 4.4 Chloride 98 Carbon Dioxide 30 Anion Gap 8 L BUN 13 Creatinine 0.7 Est GFR ( Amer) > 60 Est GFR (Non-Af Amer) > 60 Random Glucose 105 Calcium 8.8 Phosphorus 3.9 Magnesium 2.1 Total Bilirubin 0.6 AST 59 H ALT < 6 L D Alkaline Phosphatase 160 H D Total Protein 6.5 Albumin 3.0 L Globulin 3.5 Albumin/Globulin Ratio 0.8 L Carcinoembryonic Ag 1.4 Urine Color Sowmya Urine Clarity Hazy Urine pH 5.0 Ur Specific [place] 1.024 Urine Protein 2+ H Urine Glucose (UA) Normal Urine Ketones Negative Urine Blood 2+ H Urine Nitrate Positive H Urine Bilirubin Negative Urine Urobilinogen Normal Ur Leukocyte Esterase 3+ H Urine WBC (Auto) 377 H Urine RBC (Auto) 52 H Urine WBC Clumps (Auto) Mod H Ur Squamous Epith Cells < 1 Urine Bacteria Many H Urine Yeast (Budding) Mod H Assessment & Plan - Assessment and Plan (Free Text) Assessment: Palliative consult Full Code, there is no Advance Directive on chart, PPS 50% I reviewed all medical records, diagnostic studies, examined and interviewed patient in the bed. Patient is alert, oriented X 3, in no acute distress with affect that is depressed, speech clear. Breath sounds diminished, there is no cough, denies SOB, O2Sat 95 % RA. HR 102, sinus tach, denies chest pain. Abdomen distended, hard to touch, decreased bowel sounds. patient reports one small BM this morning. patient reports taste loss and very poor appetite. There is vaginal bleeding. Patient feels bleeding is subsiding after the 1st dose of last chemo session, last week. her Hb dropped to 8.4 from 9.5 Patient tolerates water only. She tried her favorite ice cream last night and could not tolerate it. She feels dry and dehydrated. There is active ROM. patient reports general weakness and inability to ambulate on her own. Pain : reports chronic abdominal pain . Pain is deep, abdominal and moderate. Patient is relieved with Percocet PRN in addition to Fentanyl 75 mcg patch. Goals of care discussed with patient: She admits to anxiety, depression and fear of her prognosis. Patient is aware of her diagnosis. Patient reports poor sleep, inability to concentrate, being tired from answering questions to family and health care takers regarding her condition. Patient is mostly concerned with her food intolerance. Patient wishes to be able to resume her regular food intake and to tolerate Chemo Tx. patient is dedicated to fight her cancer, but at the same time admits to feeling weak to do so. Patient would like to get OOB and seat in the chair . we discussed option of PT and she agreed. Patient admits being very church. She reasons her condition as a God's Wish. I offered Pastoral Care assistance and she agreed. This was discussed with Flight Attendant/Inflight Supervisor Gabriela. I did not discuss Code status with patient at this time. I felt that would increase patient's anxiety even more. I was able to establish a good rapport with this patient and intend to continue supporting her on her journey. Impression * Metastatic cancer disease * Pain cancer related * Abdominal distention * Anticipatory anxiety due to cancer diagnosis * Tiredness * Strong church influence, patient is finding comfort in God * Food intolerance * Lost ability to taste food * Dehydration Suggestions * Continue Fentanyl patch 75 mcg and Percocet PRN * Remind patient of PRN pain meds available * Bowel regimen, would start Senocot 2 tb Q HS * PT * Offer ice chips as tolerated to promote hydration * Offer cold beverage for easier consumption * Pastoral care for spiritual support I spoke to patient about alternative, complementary Tx to help her with improving her taste. I suggested patient use fresh lemon juice as addition to her water to enhance saliva production and " wake up" those taste buds. She agreed. I discussed with patient using [place] essential oil as a supplemental therapy to promote beeted sleep and assist with symptoms of anxiety and depression. She agreed, her family will bring it in. Palliative care will continue to fallow and support this patient.
[2019-01-12] MEDS: Enoxaparin 40 mg Syringe SC SCH (11:15)
[2019-01-12] MEDS ORDERED: oxyCODONE 10 mg ER Tab (oxyCONTIN) PO SCH (11:15)
[2019-01-12] MEDS ORDERED: oxyCODONE 10 mg ER Tab (oxyCONTIN) PO PRN (13:20)
--- NOTE | 2019-01-12 14:05 | CARD ---
APPROVED REPORT Date of service: 01/10/2019 EKG Measurement Heart [id number] ID [id number] <Conclusion> Sinus tachycardia Otherwise normal ECG
[2019-01-12] MEDS ORDERED: Iodixanol 320 MG/ML 100 ML BOTTLE IV ONE (15:51)
--- NOTE | 2019-01-12 18:48 | CT ---
Date of service: 01/12/2019 PROCEDURE: CT HEAD WITH AND WITHOUT CONTRAST HISTORY: ovarian ca w/ mets COMPARISON: None available. TECHNIQUE: Axial computed tomography images were obtained through the head/brain with and without intravenous contrast enhancement. Contrast dose: Visipaque 320, 100 cc Radiation dose: Total exam DLP = 1647.06 mGy-cm. This CT exam was performed using one or more of the following dose reduction techniques: Automated exposure control, adjustment of the mA and/or kV according to patient size, and/or use of iterative reconstruction technique. FINDINGS: HEMORRHAGE: No intracranial hemorrhage. BRAIN: Normal scott-white matter differentiation and density are appreciated throughout the cerebrum and cerebellum with the brainstem appearing unremarkable as well. There is no mass effect. There is no suspicious extra-axial fluid collection and the midline brain anatomy appears diffusely unremarkable. There is no abnormal intracranial enhancement. VENTRICLES: Unremarkable. No hydrocephalus. CALVARIUM: Unremarkable. SINUSES: Unremarkable as visualized. No significant inflammatory changes. MASTOID AIR CELLS: Unremarkable as visualized. No mastoid effusion. OTHER FINDINGS: None. IMPRESSION: Normal pre and post contrast enhanced CT of the head.
--- NOTE | 2019-01-12 18:52 | CT ---
Date of service: 01/12/2019 PROCEDURE: CT NECK WITH CONTRAST HISTORY: Ovarian Ca Mets COMPARISON: None available. TECHNIQUE: CT of the neck with intravenous contrast. Coronal and sagittal reformats generated. Intravenous contrast dose: Radiation dose: Total exam DLP = 500.13 mGy-cm. This CT exam was performed using one or more of the following dose reduction techniques: Automated exposure control, adjustment of the mA and/or kV according to patient size, and/or use of iterative reconstruction technique. FINDINGS: NASOPHARYNX: Unremarkable. SUPRAHYOID NECK: Unremarkable oropharynx, oral cavity, parapharyngeal space and retropharyngeal space. INFRAHYOID NECK: Unremarkable larynx, hypopharynx, and supraglottic space. Vocal cords intact. MASS: None. GLANDS: Parotid and submandibular glands unremarkable. Normal size thyroid gland, without nodule. LYMPH NODES: Normal. No lymphadenopathy. CERVICAL SPINE: Advanced inferior cervical degenerative disease. No acute fracture or spondylolisthesis appreciated. VASCULAR STRUCTURES: Note is made of a right-sided MediPort entering the thoracic inlet via the right internal jugular vein and subsequently entering the superior vena cava with the tip not included in this exam. OTHER FINDINGS: None. IMPRESSION: No CT evidence to suggest definitive metastasis in the supra or infrahyoid neck. No significant lymphadenopathy appreciated.
--- NOTE | 2019-01-12 18:59 | CT ---
Date of service: 01/12/2019 CT chest with IV contrast Indication: OVARIAN CA , METS Technique: Contiguous axial images were obtained through the chest with intravenous contrast enhancement. Sagittal and coronal reconstructions were generated and reviewed. This CT exam was performed using 1 or more of the following dose reduction techniques: Automated exposure control, adjustment of the MAA and/or kV according to patient size, and/or use of iterative reconstruction technique. IV contrast: 60 mL Visipaque 320 IV Radiation dose (DLP): 423.76 MGy-cm. Comparison: Chest x-ray performed 01/11/19 Findings: Right IJ approach central venous catheter extends the cavoatrial junction. Visualized portions of the inferior thyroid gland appear unremarkable. The mediastinal and hilar vascular structures appear within normal limits. The heart appears within normal limits of size. Trace effusions, left greater than right. Mild basilar atelectasis. No pneumothorax. No suspicious pulmonary nodules measuring greater than 5 mm. Partially imaged upper abdomen demonstrates small to moderate ascites. No acute osseous abnormality is detected. Impression: Right IJ approach central venous catheter extends the cavoatrial junction. Trace effusions, left greater than right. Mild basilar atelectasis. Small to moderate ascites demonstrated within the partially imaged upper abdomen.
--- NOTE | 2019-01-12 22:36 | CP.PCM.CON ---
History of Present Illness - History of Present Illness History of Present Illness: 68 year old female with a history of recurrent uterine cancer on chemotherapy, admitted with progressive fatigue. The patient notes to progressive fatigue and poor PO intake since starting a new chemotherapy (?DOXIL). She notes her cancer has spread and this was a new chemotherapy. Since receiving chemotherapy, her vaginal bleeding has improved but she is more tired. She has no desire to eat and began to feel weak. She receives her treatment in the [place] with Dr. Ryan. Past medical history: Recurrent uterine cancer Past surgical history: Total hysterectomy, portacath Family history: Denies hematologic and oncologic problems Social history: Denies tobacco, alcohol, and illicit drug use. Allergies: NKA Review of systems: All remaining review of systems including HEENT, cardiovascular, respiratory, gatrointestinal, genitourinary, musculoskeletal, dermatologic, neurologic, and psychiatric are negative unless mentioned in the HPI. Past Patient History - Past Social History Smoking Status: Never Smoked - GENITOURINARY/GYNECOLOGICAL Hx Genitourinary Disorders: Yes Hx Uterine Cancer: Yes Other/Comment: VULVA CA - PSYCHIATRIC Hx Substance Use: No - SURGICAL HISTORY Hx Surgeries: Yes Hx Hysterectomy: Yes Other/Comment: ectopic 1981 - ANESTHESIA Hx Anesthesia: Yes Hx Anesthesia Reactions: No Hx Malignant Hyperthermia: No Meds Allergies/Adverse Reactions: Allergies Allergy/AdvReac Type Severity Reaction Status Date / Time No Known Allergies Allergy Verified 01/10/19 09:23 - Medications Medications: Current Medications Acetaminophen (Tylenol 325mg Tab) 325 mg PO Q4 PRN PRN Reason: Pain, moderate (4-7) Last Admin: 01/12/19 22:04 Dose: 325 mg Enoxaparin Sodium (Lovenox) 40 mg SC DAILY [facility] Last Admin: 01/12/19 11:15 Dose: 40 mg Fentanyl (Duragesic) 1 patch TD Q72H [facility] Last Admin: 01/10/19 18:37 Dose: 1 patch Ceftriaxone Sodium 1 gm/ (Sodium Chloride) 100 mls @ 100 mls/hr IVPB DAILY [facility]; Protocol Lactulose (Enulose) 20 gm PO ONCE ONE Stop: 01/13/19 13:31 Ondansetron HCl (Zofran Inj) 4 mg IVP Q4 PRN PRN Reason: Nausea/Vomiting Oxycodone HCl (Oxycontin Extended Release Tab) 10 mg PO Q4 PRN PRN Reason: Pain, severe (8-10) Stop: 01/15/19 13:21 Last Admin: 01/12/19 22:04 Dose: 10 mg Physical Exam - Head Exam Head Exam: ATRAUMATIC - Eye Exam Eye Exam: Normal appearance - ENT Exam ENT Exam: Mucous Membranes Dry - Respiratory Exam Respiratory Exam: NORMAL BREATHING PATTERN - Cardiovascular Exam Cardiovascular Exam: +S1, +S2 - GI/Abdominal Exam GI & Abdominal Exam: Normal Bowel Sounds - Extremities Exam Extremities exam: Positive for: pedal edema - Neurological Exam Neurological exam: Oriented x3 - Psychiatric Exam Psychiatric exam: Normal Affect, Normal Mood - Skin Skin Exam: Warm Results - Vital Signs Recent Vital Signs: Last Vital Signs Temp 99 F 01/12/19 16:00 Pulse 111 H 01/12/19 16:00 Resp 20 01/12/19 16:00 BP 128/74 01/12/19 16:00 Pulse Ox 98 01/12/19 16:00 - Labs Result Diagrams: 01/12/19 06:36 01/12/19 06:36 Labs: Laboratory Results - last 24 hr 01/12/19 01/12/19 01/12/19 06:36 06:36 07:05 WBC 6.9 RBC 3.04 L Hgb 8.4 L Hct 25.0 L MCV 82.3 MCH 27.5 MCHC 33.4 RDW 17.6 H Plt Count 159 MPV 7.7 Neut % (Auto) 81.9 H Lymph % (Auto) 7.1 L [place] % (Auto) 10.0 Eos % (Auto) 0.7 Baso % (Auto) 0.3 Neut # (Auto) 5.6 Lymph # (Auto) 0.5 L Gage # (Auto) 0.7 Eos # (Auto) 0.0 Baso # (Auto) 0.0 Neutrophils % (Manual) 82 H Band Neutrophils % 6 H Lymphocytes % (Manual) 4 L Monocytes % (Manual) 8 Platelet Estimate Normal Hypochromasia (manual) Slight Anisocytosis (manual) Slight Sodium 132 Potassium 4.4 Chloride 98 Carbon Dioxide 30 Anion Gap 8 L BUN 13 Creatinine 0.7 Est GFR ( Amer) > 60 Est GFR (Non-Af Amer) > 60 Random Glucose 105 Calcium 8.8 Phosphorus 3.9 Magnesium 2.1 Total Bilirubin 0.6 AST 59 H ALT < 6 L D Alkaline Phosphatase 160 H D Total Protein 6.5 Albumin 3.0 L Globulin 3.5 Albumin/Globulin Ratio 0.8 L Carcinoembryonic Ag 1.4 CA 19-9 Antigen < 1.4 CA 125 Antigen 29.5 Urine Color Sowmya Urine Clarity Hazy Urine pH 5.0 Ur Specific [place] 1.024 Urine Protein 2+ H Urine Glucose (UA) Normal Urine Ketones Negative Urine Blood 2+ H Urine Nitrate Positive H Urine Bilirubin Negative Urine Urobilinogen Normal Ur Leukocyte Esterase 3+ H Urine WBC (Auto) 377 H Urine RBC (Auto) 52 H Urine WBC Clumps (Auto) Mod H Ur Squamous Epith Cells < 1 Urine Bacteria Many H Urine Yeast (Budding) Mod H Assessment & Plan (1) Anemia Assessment and Plan: multifactorial anemia of chemotherapy anemia of chronic disease vaginal bleeding from malignancy transfusion support PRN Status: Acute (2) Uterine cancer Assessment and Plan: recurrent, peritoneal carcinomatosis noted on salvage chemotherapy reports to improvement in vaginal bleeding which may suggest response to therapy outpatient f/u with primary oncologist Thank you for this interesting consult. Status: Acute
--- NOTE | 2019-01-12 22:41 | CP.PCM.PN ---
Subjective - Date & Time of Evaluation Date of Evaluation: 01/12/19 Time of Evaluation: 20:00 - Subjective Subjective: Feels weak. Objective - Vital Signs/Intake and Output Vital Signs (last 24 hours): Temp Pulse Resp BP Pulse Ox 99 F 111 H 20 128/74 98 01/12/19 16:00 01/12/19 16:00 01/12/19 16:00 01/12/19 16:00 01/12/19 16:00 Intake and Output: 01/12/19 01/13/19 18:59 06:59 Intake Total 750 150 Balance 750 150 - Medications Medications: Current Medications Acetaminophen (Tylenol 325mg Tab) 325 mg PO Q4 PRN PRN Reason: Pain, moderate (4-7) Last Admin: 01/12/19 22:04 Dose: 325 mg Enoxaparin Sodium (Lovenox) 40 mg SC DAILY [facility] Last Admin: 01/12/19 11:15 Dose: 40 mg Fentanyl (Duragesic) 1 patch TD Q72H [facility] Last Admin: 01/10/19 18:37 Dose: 1 patch Ceftriaxone Sodium 1 gm/ (Sodium Chloride) 100 mls @ 100 mls/hr IVPB DAILY [facility]; Protocol Lactulose (Enulose) 20 gm PO ONCE ONE Stop: 01/13/19 13:31 Ondansetron HCl (Zofran Inj) 4 mg IVP Q4 PRN PRN Reason: Nausea/Vomiting Oxycodone HCl (Oxycontin Extended Release Tab) 10 mg PO Q4 PRN PRN Reason: Pain, severe (8-10) Stop: 01/15/19 13:21 Last Admin: 01/12/19 22:04 Dose: 10 mg - Labs Labs: 01/12/19 06:36 01/12/19 06:36 - Head Exam Head Exam: ATRAUMATIC - Eye Exam Eye Exam: Normal appearance - ENT Exam ENT Exam: Mucous Membranes Dry - Respiratory Exam Respiratory Exam: NORMAL BREATHING PATTERN - Cardiovascular Exam Cardiovascular Exam: +S1, +S2 - GI/Abdominal Exam GI & Abdominal Exam: Normal Bowel Sounds Assessment and Plan (1) Anemia Assessment & Plan: multifactorial anemia of chemotherapy anemia of chronic disease vaginal bleeding from malignancy transfusion support PRN Status: Acute (2) Uterine cancer Assessment & Plan: recurrent, peritoneal carcinomatosis noted on salvage chemotherapy reports to improvement in vaginal bleeding which may suggest response to therapy outpatient f/u with primary oncologist Status: Acute
[2019-01-13 07:30] LABS: BASO % 0.3 % (0.0-2.0); EOS % 0.3 % (0.0-4.0); HEMOGLOBIN 8.9 g/dL (11.0-16.0); LYMPH # 0.6 K/uL (1.0-4.3); LYMPH % 7.6 % (20.0-40.0); MEAN CELL VOLUME 81.9 fL (81.0-99.0); MEAN CORPUSCULAR HEMOGLOBIN 27.6 pg (27.0-31.0); MEAN CORPUSCULAR HGB CONC 33.7 g/dL (33.0-37.0); MEAN PLATELET VOLUME 8.1 fL (7.2-11.7); MONO # 0.9 K/uL (0.0-0.8); MONO % 12.1 % (0.0-10.0); NEUT # 5.9 K/uL (1.8-7.0); NEUT % 79.7 % (50.0-75.0); NRBC % 0.2 % (0.0-2.0); PLATELET COUNT 192 K/uL (130-400); RBC 3.21 Mil/uL (3.80-5.20); RED CELL DISTRIBUTION WIDTH 17.2 % (11.5-14.5); WHITE BLOOD COUNT 7.4 K/uL (4.8-10.8)
[2019-01-13 08:24] LABS: ALB/GLOB RATIO 0.9 (1.0-2.1); ALBUMIN 3.1 g/dL (3.5-5.0); ALT/SGPT < 6 U/L (9-52); AST/SGOT 52 U/L (14-36); BLOOD UREA NITROGEN 12 mg/dL (7-17); CALCIUM 9.2 mg/dl (8.6-10.4); GFR NON-AFRICAN AMERICAN > 60
--- NOTE | 2019-01-13 09:19 | CP.PCM.DIS ---
<Randy Butler - Last Filed: 01/13/19 15:21> Provider - Provider Date of Admission: 01/10/19 14:57 Attending physician: George Bojorquez DO Consults: 01/10/19 19:59 Physician Consult Routine Comment: Consulting Provider: Mariusz Kemp Consulting Physician: Mariusz Kemp Reason for Consult: Cervical CA with mets 01/11/19 13:00 Palliative Care Consult Routine Comment: Consulting Provider: Bernadette Combs Physician Instructions: Reason For Exam: Ovarian Ca, mets Time Spent in preparation of Discharge (in minutes): 45 Diagnosis - Discharge Diagnosis (1) Uterine carcinosarcoma Status: Acute (2) Metastasis from cancer of uterus Status: Acute (3) Abdominal pain Status: Acute (4) Anemia Status: Chronic Hospital Course - Lab Results Lab Results: Most Recent Lab Values WBC 7.4 K/uL (4.8-10.8) 01/13/19 07:11 RBC 3.21 Mil/uL (3.80-5.20) L 01/13/19 07:11 Hgb 8.9 g/dL (11.0-16.0) L 01/13/19 07:11 Hct 26.3 % (34.0-47.0) L 01/13/19 07:11 MCV 81.9 fL (81.0-99.0) 01/13/19 07:11 MCH 27.6 pg (27.0-31.0) 01/13/19 07:11 MCHC 33.7 g/dL (33.0-37.0) 01/13/19 07:11 RDW 17.2 % (11.5-14.5) H 01/13/19 07:11 Plt Count 192 K/uL (130-400) 01/13/19 07:11 MPV 8.1 fL (7.2-11.7) 01/13/19 07:11 Neut % (Auto) 79.7 % (50.0-75.0) H 01/13/19 07:11 Lymph % (Auto) 7.6 % (20.0-40.0) L 01/13/19 07:11 [place] % (Auto) 12.1 % (0.0-10.0) H 01/13/19 07:11 Eos % (Auto) 0.3 % (0.0-4.0) 01/13/19 07:11 Baso % (Auto) 0.3 % (0.0-2.0) 01/13/19 07:11 Neut # (Auto) 5.9 K/uL (1.8-7.0) 01/13/19 07:11 Lymph # (Auto) 0.6 K/uL (1.0-4.3) L 01/13/19 07:11 [place] # (Auto) 0.9 K/uL (0.0-0.8) H 01/13/19 07:11 Eos # (Auto) 0.0 K/uL (0.0-0.7) 01/13/19 07:11 Baso # (Auto) 0.0 K/uL (0.0-0.2) 01/13/19 07:11 Neutrophils % (Manual) 82 % (50-75) H 01/12/19 06:36 Band Neutrophils % 6 % (0-2) H 01/12/19 06:36 Lymphocytes % (Manual) 4 % (20-40) L 01/12/19 06:36 Monocytes % (Manual) 8 % (0-10) 01/12/19 06:36 Nucleated RBC % 1 % (0-0) H 01/10/19 10:46 Platelet Estimate Normal (NORMAL) 01/12/19 06:36 Hypochromasia (manual) Slight 01/12/19 06:36 Anisocytosis (manual) Slight 01/12/19 06:36 Ovalocytes Slight 01/10/19 10:46 Sodium 134 mmol/L (132-148) 01/13/19 07:11 Potassium 3.9 mmol/L (3.6-5.2) 01/13/19 07:11 Chloride 98 mmol/L (98-107) 01/13/19 07:11 Carbon Dioxide 26 mmol/L (22-30) 01/13/19 07:11 Anion Gap 15 (10-20) 01/13/19 07:11 BUN 12 mg/dL (7-17) 01/13/19 07:11 Creatinine 0.8 mg/dL (0.7-1.2) 01/13/19 07:11 Est GFR ( Amer) > 60 01/13/19 07:11 Est GFR (Non-Af Amer) > 60 01/13/19 07:11 Random Glucose 116 mg/dL (65-105) H 01/13/19 07:11 Calcium 9.2 mg/dl (8.6-10.4) 01/13/19 07:11 Phosphorus 3.7 mg/dL (2.5-4.5) 01/13/19 07:11 Magnesium 2.0 mg/dL (1.6-2.3) 01/13/19 07:11 Total Bilirubin 0.6 mg/dL (0.2-1.3) 01/13/19 07:11 AST 52 U/L (14-36) H 01/13/19 07:11 ALT < 6 U/L (9-52) L 01/13/19 07:11 Alkaline Phosphatase 205 U/L (38-126) H D 01/13/19 07:11 Troponin I < 0.0120 ng/mL (0.00-0.120) 01/10/19 10:46 NT-Pro-B Natriuret Pep 191 pg/mL (0-900) 01/10/19 10:46 Total Protein 6.8 g/dL (6.3-8.3) 01/13/19 07:11 Albumin 3.1 g/dL (3.5-5.0) L 01/13/19 07:11 Globulin 3.7 gm/dL (2.2-3.9) 01/13/19 07:11 Albumin/Globulin Ratio 0.9 (1.0-2.1) L 01/13/19 07:11 Lipase 10 U/L (23-300) L 01/10/19 10:46 Carcinoembryonic Ag 1.4 ng/mL (0-3.0) 01/12/19 06:36 CA 19-9 Antigen < 1.4 U/mL (0-37) 01/12/19 06:36 CA 125 Antigen 29.5 U/mL (0-35) 01/12/19 06:36 Urine Color Sowmya (YELLOW) 01/12/19 07:05 Urine Clarity Hazy (Clear) 01/12/19 07:05 Urine pH 5.0 (5.0-8.0) 01/12/19 07:05 Ur Specific [place] 1.024 (1.003-1.030) 01/12/19 07:05 Urine Protein 2+ mg/dL (NEGATIVE) H 01/12/19 07:05 Urine Glucose (UA) Normal mg/dL (Normal) 01/12/19 07:05 Urine Ketones Negative mg/dL (NEGATIVE) 01/12/19 07:05 Urine Blood 2+ (NEGATIVE) H 01/12/19 07:05 Urine Nitrate Positive (NEGATIVE) H 01/12/19 07:05 Urine Bilirubin Negative (NEGATIVE) 01/12/19 07:05 Urine Urobilinogen Normal mg/dL (0.2-1.0) 01/12/19 07:05 Ur Leukocyte Esterase 3+ Theo/uL (Negative) H 01/12/19 07:05 Urine WBC (Auto) 377 /hpf (0-5) H 01/12/19 07:05 Urine RBC (Auto) 52 /hpf (0-3) H 01/12/19 07:05 Urine WBC Clumps (Auto) Mod /hpf (NONE) H 01/12/19 07:05 Ur Squamous Epith Cells < 1 /hpf (0-5) 01/12/19 07:05 Urine Bacteria Many (<OCC) H 01/12/19 07:05 Urine Yeast (Budding) Mod /hpf (NEGATIVE) H 01/12/19 07:05 - Hospital Course Hospital Course: HPI: 68F pmhx of Ovarian CA w/ Mets admitted for abdominal distention and worsening abdominal pain over the last 2 months. She first noticed this a few months ago and was told by her Oncologist Dr Ryan @ [facility] that it is due to the lymphnodes in her abdomen. Patient has been taking percocet and a fentanyl patch for pain control associated with her cancer. She has been limiting herself to just a liquid diet but now would like to try solid foods. Pt also complains of mild vaginal bleeding that is chronic sin 2016. All of her medical care was at [facility] in [facility]. Pt was diagnosed with small uterine fibroids many years ago and was monitoring them intermittently. In 2016 she was diagnosed with Ovarian Ca and had a hysterectomy. Pt underwent her first round of chemo this past month. Pt says she has always been compliant with medical follow ups and was never with any chronic illness. has had 3 normal colonoscopies and many normal mammograms in the past as per pt. Denies past abnormal pap smears. ROS: Pos + abd pain/distention, chronic vaginal bleeding, hx of cancer, recent chem, liquid diet, weight gain Neg- CP, SOB, FC, NV, blood in urine/stool, syncope, numbness, weakness, hair loss, constipation PMD: Dr Ryan heme/onc @ [facility] PMHx: Ovarian Ca, Carcinomatosis PSx: Hysterectomy Nov 2015 SocHx: denies smoking etoh or drug use, Aller: NKDA Home Rx: none except chemo- doesn't know the name Code Status: wishes to discuss with her family and palliative care Spoke with Dr Ryan @ [facility] Pt was dx with Uterine Carncinosarcoma had tried lipozomal doxirubicin-doxil , however this is likely only a palliative measure, this was only a "stealth" treatment at 75% of therapeutic dose. Patient was previously seen and was told to consider hospice care. Pt wanted to try one round of therapy, Onc agreed and would attempt one round to see if epithelial lesions would shrink for comfort measures. Incidental UTI was found on UA Patient Was admitted for abdominal pain, found to have extensive Mets varying in size, as big as 9x6cm in the abdomen. They are epithelial mets from the carcinosarcoma. Pt was pain controlled with Fentanyl Patch and Oxycontin Pt is obtaining home comfort care carina services however will follow up with [facility] at [facility] for pain management until services are fully established. CT w/ Contrast of Head Neck Chest Abd Pelv showed mets in abdomen, nothing above abdomen PLAN Please Take the following medications as prescribed Pain control: Acetaminophen/Oxycodone Hydr [Percocet 10/325 mg Tab] 1 tab PO Q4H PRN #30 tab PRN Reason: Pain, Severe (8-10) Fentanyl 1 each TD @75mcg/hr Q3D #1 patch.td72 Antibiotics for UTI: Sulfamethoxazole/Trimethoprim [Bactrim 400-80 mg Tablet] 1 each PO BID #14 tablet Please follow up at the [facility] at [facility] for pain control Please follow up with Dr Ryan at [facility] regarding your subtherapeutic palliative Liposomal-doxyrubicin chemotherapy Take Care and be well Christopher Kyriakides DO Discharge Exam - Head Exam Head Exam: ATRAUMATIC - Additional Findings Additional findings: - Constitutional Appears: No Acute Distress, Chronically Ill - Head Exam Head Exam: ATRAUMATIC, NORMAL INSPECTION - Eye Exam Eye Exam: EOMI, Normal appearance, PERRL. absent: Periorbital swelling, Scleral icterus Pupil Exam: NORMAL ACCOMODATION, PERRL - ENT Exam ENT Exam: Mucous Membranes Moist, Normal Exam - Neck Exam Neck exam: Positive for: Normal Inspection. Negative for: Lymphadenopathy, Tenderness, Thyromegaly - Respiratory Exam Respiratory Exam: Clear to Auscultation Bilateral. absent: Wheezes, Respiratory Distress - Cardiovascular Exam Cardiovascular Exam: RRR, +S1, +S2 - GI/Abdominal Exam GI & Abdominal Exam: Distended (mild fluid wave, large palpable mas noted in ventral hernia, mobile, midline above umbilicus), Organomegaly. absent: Pulsatile Mass, Rebound, Rigid Additional comments: Ultrasound: No large fluid collections noted - Extremities Exam Extremities exam: Positive for: normal inspection, pedal pulses present. Negative for: joint swelling - Back Exam Back exam: absent: paraspinal tenderness - Neurological Exam Neurological exam: Alert, CN II-XII Intact, Oriented x3 - Psychiatric Exam Psychiatric exam: Anxious - Skin Skin Exam: Dry, Intact, Normal Color, Warm Discharge Plan - Discharge Medications Prescriptions: Acetaminophen/Oxycodone Hydr [Percocet 10/325 mg Tab] 1 tab PO Q4H PRN #30 tab PRN Reason: Pain, Severe (8-10) Fentanyl 1 each TD Q3D #1 patch.td72 Sulfamethoxazole/Trimethoprim [Bactrim 400-80 mg Tablet] 1 each PO BID #14 tablet - Follow Up Plan Condition: GUARDED Disposition: HOME/ ROUTINE Instructions: Fluid in the Belly (Ascites) (DC), Acute Abdominal Pain (DC) Additional Instructions: Please Take the following medications as prescribed Pain control: Acetaminophen/Oxycodone Hydr [Percocet 10/325 mg Tab] 1 tab PO Q4H PRN #30 tab PRN Reason: Pain, Severe (8-10) Fentanyl 1 each TD @75mcg/hr Q3D #1 patch.td72 please apply this new patch on Wednesday Antibiotics for UTI: Sulfamethoxazole/Trimethoprim [Bactrim 400-80 mg Tablet] 1 each PO BID #14 table t Please follow up at the [facility] at [facility] for pain control- your appointment is wednesday 01/17 at 9am Please follow up with Dr Ryan at [facility] regarding your subtherapeutic pall iative Liposomal-doxyrubicin chemotherapy Take Care and be well Abran Butler DO Referrals: Mariusz Kemp MD [Staff Provider] - Mahi Guillen MD [Staff Provider] - <George Bojorquez - Last Filed: 01/13/19 18:34> Provider - Provider Date of Admission: 01/10/19 14:57 Attending physician: George Bojorquez DO Consults: 01/10/19 19:59 Physician Consult Routine Comment: Consulting Provider: Mariusz Kemp Consulting Physician: Mariusz Kemp Reason for Consult: Cervical CA with mets 01/11/19 13:00 Palliative Care Consult Routine Comment: Consulting Provider: Bernadette Combs Physician Instructions: Reason For Exam: Ovarian Ca, mets Hospital Course - Lab Results Lab Results: Most Recent Lab Values WBC 7.4 K/uL (4.8-10.8) 01/13/19 07:11 RBC 3.21 Mil/uL (3.80-5.20) L 01/13/19 07:11 Hgb 8.9 g/dL (11.0-16.0) L 01/13/19 07:11 Hct 26.3 % (34.0-47.0) L 01/13/19 07:11 MCV 81.9 fL (81.0-99.0) 01/13/19 07:11 MCH 27.6 pg (27.0-31.0) 01/13/19 07:11 MCHC 33.7 g/dL (33.0-37.0) 01/13/19 07:11 RDW 17.2 % (11.5-14.5) H 01/13/19 07:11 Plt Count 192 K/uL (130-400) 01/13/19 07:11 MPV 8.1 fL (7.2-11.7) 01/13/19 07:11 Neut % (Auto) 79.7 % (50.0-75.0) H 01/13/19 07:11 Lymph % (Auto) 7.6 % (20.0-40.0) L 01/13/19 07:11 [place] % (Auto) 12.1 % (0.0-10.0) H 01/13/19 07:11 Eos % (Auto) 0.3 % (0.0-4.0) 01/13/19 07:11 Baso % (Auto) 0.3 % (0.0-2.0) 01/13/19 07:11 Neut # (Auto) 5.9 K/uL (1.8-7.0) 01/13/19 07:11 Lymph # (Auto) 0.6 K/uL (1.0-4.3) L 01/13/19 07:11 [place] # (Auto) 0.9 K/uL (0.0-0.8) H 01/13/19 07:11 Eos # (Auto) 0.0 K/uL (0.0-0.7) 01/13/19 07:11 Baso # (Auto) 0.0 K/uL (0.0-0.2) 01/13/19 07:11 Neutrophils % (Manual) 73 % (50-75) 01/13/19 07:11 Band Neutrophils % 5 % (0-2) H 01/13/19 07:11 Lymphocytes % (Manual) 9 % (20-40) L 01/13/19 07:11 Monocytes % (Manual) 13 % (0-10) H 01/13/19 07:11 Nucleated RBC % 1 % (0-0) H 01/10/19 10:46 Platelet Estimate Normal (NORMAL) 01/13/19 07:11 Large Platelets Present 01/13/19 07:11 Hypochromasia (manual) Slight 01/12/19 06:36 Anisocytosis (manual) Slight 01/13/19 07:11 Ovalocytes Slight 01/10/19 10:46 Sodium 134 mmol/L (132-148) 01/13/19 07:11 Potassium 3.9 mmol/L (3.6-5.2) 01/13/19 07:11 Chloride 98 mmol/L (98-107) 01/13/19 07:11 Carbon Dioxide 26 mmol/L (22-30) 01/13/19 07:11 Anion Gap 15 (10-20) 01/13/19 07:11 BUN 12 mg/dL (7-17) 01/13/19 07:11 Creatinine 0.8 mg/dL (0.7-1.2) 01/13/19 07:11 Est GFR ( Amer) > 60 01/13/19 07:11 Est GFR (Non-Af Amer) > 60 01/13/19 07:11 Random Glucose 116 mg/dL (65-105) H 01/13/19 07:11 Calcium 9.2 mg/dl (8.6-10.4) 01/13/19 07:11 Phosphorus 3.7 mg/dL (2.5-4.5) 01/13/19 07:11 Magnesium 2.0 mg/dL (1.6-2.3) 01/13/19 07:11 Total Bilirubin 0.6 mg/dL (0.2-1.3) 01/13/19 07:11 AST 52 U/L (14-36) H 01/13/19 07:11 ALT < 6 U/L (9-52) L 01/13/19 07:11 Alkaline Phosphatase 205 U/L (38-126) H D 01/13/19 07:11 Troponin I < 0.0120 ng/mL (0.00-0.120) 01/10/19 10:46 NT-Pro-B Natriuret Pep 191 pg/mL (0-900) 01/10/19 10:46 Total Protein 6.8 g/dL (6.3-8.3) 01/13/19 07:11 Albumin 3.1 g/dL (3.5-5.0) L 01/13/19 07:11 Globulin 3.7 gm/dL (2.2-3.9) 01/13/19 07:11 Albumin/Globulin Ratio 0.9 (1.0-2.1) L 01/13/19 07:11 Lipase 10 U/L (23-300) L 01/10/19 10:46 Carcinoembryonic Ag 1.4 ng/mL (0-3.0) 01/12/19 06:36 CA 19-9 Antigen < 1.4 U/mL (0-37) 01/12/19 06:36 CA 125 Antigen 29.5 U/mL (0-35) 01/12/19 06:36 Urine Color S[place]mya (YELLOW) 01/12/19 07:05 Urine Clarity Hazy (Clear) 01/12/19 07:05 Urine pH 5.0 (5.0-8.0) 01/12/19 07:05 Ur Specific [place] 1.024 (1.003-1.030) 01/12/19 07:05 Urine Protein 2+ mg/dL (NEGATIVE) H 01/12/19 07:05 Urine Glucose (UA) Normal mg/dL (Normal) 01/12/19 07:05 Urine Ketones Negative mg/dL (NEGATIVE) 01/12/19 07:05 Urine Blood 2+ (NEGATIVE) H 01/12/19 07:05 Urine Nitrate Positive (NEGATIVE) H 01/12/19 07:05 Urine Bilirubin Negative (NEGATIVE) 01/12/19 07:05 Urine Urobilinogen Normal mg/dL (0.2-1.0) 01/12/19 07:05 Ur Leukocyte Esterase 3+ Theo/uL (Negative) H 01/12/19 07:05 Urine WBC (Auto) 377 /hpf (0-5) H 01/12/19 07:05 Urine RBC (Auto) 52 /hpf (0-3) H 01/12/19 07:05 Urine WBC Clumps (Auto) Mod /hpf (NONE) H 01/12/19 07:05 Ur Squamous Epith Cells < 1 /hpf (0-5) 01/12/19 07:05 Urine Bacteria Many (<OCC) H 01/12/19 07:05 Urine Yeast (Budding) Mod /hpf (NEGATIVE) H 01/12/19 07:05 Attending/Attestation - Attestation I have personally seen and examined this patient.: Yes I have fully participated in the care of the patient.: Yes I have reviewed all pertinent clinical information, including history, physical exam and plan: Yes Notes (Text): 01/13/19 18:07 Medical attending: Patient was seen and examined by me with the medical administrative specialist. The patient had a CT scan of the chest, neck, and head as well and these are n egative for further spread of the malignancy. She will be discharged to home with the TD Fentanyl patch as well as the PO Percocet. The patient will have to follow up with the [facility] since she is now staying with family members in [place] and she is no longer living in COUNTS INCLUDE 234 BEDS AT THE [facility] Patient is depressed over the entire situation, she explained that she was hoping that the chemotherapy would take care of the malignancy - however per our conversation with her doll surgeon / oncologist it appears that it was inevitable that the cancer worsened and the masses in her abdomen worsened. The patient does not have insurance and the case workers tried to arrange for one of the home hospice groups to see the patient however to no avail. George Bojorquez
[2019-01-13 09:49] VITALS: O2SAT 96
[2019-01-13 09:57] LABS: ANISOCYTOSIS SLIGHT; BANDS 5 % (0-2); LARGE PLATELETS PRESENT; LYMPHOCYTE 9 % (20-40); MONOCYTE 13 % (0-10); NEUTROPHIL 73 % (50-75); PLATELET ESTIMATE NORMAL (NORMAL); TOTAL CELLS COUNTED 100
[2019-01-13] MEDS: Enoxaparin 40 mg Syringe SC SCH (10:21)
[2019-01-13 16:04] VITALS: BP 143/85; PULSE 114; TEMP 99.9
== END 2019-01-13 18:02 | disposition home or self-care (01) ==
LOC: C.ER 09:02 → C.9E 14:57 → C.3T 16:48
PROVIDERS: ADMIT Hospitalist; ATTEND Hospitalist
DX: C78.6 Secondary malignant neoplasm of retroperitoneum and peritoneum (principal); C55 Malignant neoplasm of uterus, part unspecified; R63.0 Anorexia; D64.81 Anemia due to antineoplastic chemotherapy; C78.7 Secondary malignant neoplasm of liver and intrahepatic bile duct; D63.8 Anemia in other chronic diseases classified elsewhere; E86.0 Dehydration; N95.0 Postmenopausal bleeding; Z51.5 Encounter for palliative care; R18.0 Malignant ascites; F32.9 Major depressive disorder, single episode, unspecified; F41.9 Anxiety disorder, unspecified; G89.3 Neoplasm related pain (acute) (chronic); K43.9 Ventral hernia without obstruction or gangrene; N39.0 Urinary tract infection, site not specified
CPT/HCPCS: 36415; 70470; 70491; 71045; 71260; 74177; 80053; 81001; 82378; 83690; 83735; 83880; 84100; 84484; 85025; 86301; 86304; 93005; 96360; 96374; 97110; 97116; 97162; 99285; G0378; G8978; G8979; J1642; J1650; J2270; J2405; J7030; Q9966; Q9967

== ENCOUNTER 2019-01-17 10:31 | Observation (INO) | payer OTHER | END 2019-01-18 17:01 | disposition home or self-care (01) | LOC: C.ER 10:31 → C.9E 14:23 → C.3T 19:01 | DX: R06.02 Shortness of breath (principal); C55 Malignant neoplasm of uterus, part unspecified; C78.6 Secondary malignant neoplasm of retroperitoneum and peritoneum; E86.0 Dehydration; R62.7 Adult failure to thrive; R18.8 Other ascites; N39.0 Urinary tract infection, site not specified; Z51.5 Encounter for palliative care; Z66 Do not resuscitate; Z74.01 Bed confinement status; F41.9 Anxiety disorder, unspecified; F32.9 Major depressive disorder, single episode, unspecified ==

== ENCOUNTER 2019-01-31 10:13 | Observation (INO) | payer OTHER ==
[2019-01-31 10:14] VITALS: BMI 36.6
[2019-01-31] MEDS ORDERED: Sodium Chloride 0.9% 1,000 ML IV ONE (10:49)
[2019-01-31] MEDS ORDERED: Iohexol 240 (50 ml) PO STA (10:49)
--- NOTE | 2019-01-31 10:49 | C.PDOC ---
History Of Present Illness 68-year-old female presents to the ED for evaluation of worsening abdominal pain and distention for two days. Patient reports history of chronic abdominal pain due to metastatic uterine carcinoma. Patient states current pain is more intense than usual. She reports having "little" bowel movement yesterday. Patient is on chronic pain medications, but states she did not take her morning dose. Patient reports nausea. Patient with past surgical history of hysterectomy. Denies fever. past medical history of metastatic uterine carcinosarcoma initially diagnosed in 2015 Patient was started on a new chemotherapy regimen December 26. PREVIOUSLY TREATED AT [facility] BUT STATES DUE TO REMISSION WAS ADVISED NO LONGER CANDIDATE FOR CONTINUED TREATMENT. WORSENING ABD PAIN, DISTENTION X 2 DAYS. HO CHRONIC INTERMIT ABD PAIN DUE TO METATSTATIC uterine carcinosarcoma. CURRENT PAIN MORE INTENSE THAN USUAL. "LITTLE" BM, LAST YESTERDAY. ON CHRONIC PAIN MEDS BUT DID NOT TAKE MORNING DOSE. +NAUSEA. PSH HYST. NO FEVER. past medical history of metastatic uterine carcinosarcoma initially diagnosed in 2015 Patient was started on a new chemotherapy regimen December 26. PREVIOUSLY TREATED AT [facility] BUT STATES DUE TO REMISSION WAS ADVISED NO LONGER CANDIDATE FOR CONTINUED TREATMENT. EXAM NONTOXIC MILD DIST HEENT ANICTERIC MMM NARD ABD SOFT DISTENDED NON TYMPANIC; +PALP FIRM MASS LLQ. GEN TEND SKIN GOOD TURGOR REMAINDER NEG MDM ABD PAIN ON CHRONIC PAIN MEDS HO MET CA. RO OBSTRUCT, MASS COMPRESSION, CONSTIPATION. CT LABS PAIN RX Time Seen by Provider: 01/31/19 10:33 Chief Complaint (Nursing): Abdominal Pain History/Exam Limitations: no limitations Onset/Duration Of Symptoms: Days (2) Current Symptoms Are (Timing): Worse Past Medical History Reviewed: Historical Data, Nursing Documentation, Vital Signs Vital Signs: Last Vital Signs Temp 98.0 F 01/31/19 10:20 Pulse 109 H 01/31/19 10:20 Resp 20 01/31/19 10:20 BP 122/75 01/31/19 10:20 Pulse Ox 97 01/31/19 10:20 Primary Care Provider: FAMILY PROVIDER,NO - Medical History PMH: Malignancy (Ovarian/Uterine CA) Surgical History: No Surg Hx Family History: States: Unknown Family Hx - Social History Hx Alcohol Use: No Hx Substance Use: No - Immunization History Hx Tetanus Toxoid Vaccination: No Hx Influenza Vaccination: Yes (2017) Hx Pneumococcal Vaccination: Yes (2018) Review Of Systems Gastrointestinal: Positive for: Abdominal Pain Physical Exam - Physical Exam Appears: Non-toxic, Other (in mild distress ) Skin: Normal Color, Warm, Dry, Other (good turgor ) Head: Atraumatic, Normacephalic Eye(s): bilateral: Normal Inspection, PERRL, EOMI, Other (anicteric ) Ear(s): Bilateral: Normal Nose: Normal, No Discharge Oral Mucosa: Moist Neck: Supple Chest: Symmetrical, No Deformity, No Tenderness Cardiovascular: Rhythm Regular, No Murmur Respiratory: Normal Breath Sounds, No Rales, No Rhonchi, No Wheezing Gastrointestinal/Abdominal: Soft, Distention, Other (ABD SOFT DISTENDED NON TYMPANIC; +PALP FIRM MASS LLQ. GEN TEND) Extremity: Normal ROM, Capillary Refill (less than 2 seconds ) Neurological/Psych: Oriented x3, Normal Speech, Normal Cognition ED Course And Treatment - Laboratory Results Result Diagrams: 01/31/19 11:10 01/31/19 11:10 O2 Sat by Pulse Oximetry: 97 (on RA) Pulse Ox Interpretation: Normal - CT Scan/US CT A/P Other Rad Studies (CT/US): Read By Radiologist, Radiology Report Reviewed CT/US Interpretation: Date of service: 01/31/2019. PROCEDURE: CT Abdomen and Pelvis with contrast. HISTORY: abd pain HO MET CA. COMPARISON: 01/10/2019. TECHNIQUE: Contrast dose: 100 mL Visipaque 320. Radiation dose: Total exam DLP = 966.26 mGy-cm. This CT exam was performed using one or more of the following dose reduction techniques: Automated exposure control, adjustment of the mA and/or kV according to patient size, and/or use of iterative reconstruction technique. FINDINGS: LOWER THORAX: Unremarkable. LIVER: Multiple low-density hepatic masses increased in number from prior examination, likely reflecting metastatic disease. No biliary dilatation. Smooth contour. GALLBLADDER AND BILE DUCTS: Sludge and cholelithiasis within gallbladder lumen. No mural thickening or pericholecystic fluid. PANCREAS: Unremarkable. No gross lesion or ductal dilatation. SPLEEN: Unremarkable. ADRENALS: Unremarkable. No mass. KIDNEYS AND URETERS: 2.8 cm right upper pole renal yohannes ical cyst, unchanged. No other renal mass. No calculus or hydronephrosis. VASCULATURE: Unremarkable. No aortic aneurysm. There is atherosclerotic calcification of the abdominal aorta. BOWEL: No bowel obstruction. No abnormal bowel loops are identified. APPENDIX: Not identified. PERITONEUM: Numerous low to intermediate attenuation masses are seen throughout the peritoneal cavity, many of which protrudes through ventral abdominal defects. There is a persistent large mass in the left upper quadrant of the abdomen, anterior to the lower pole of the left kidney. This has increased mildly in size when compared to the prior examination. Once again, ascites is noted. LYMPH NODES: Low-density retroperitoneal lymphadenopathy is identified as on prior examination. BLADDER: Unremarkable. REPRODUCTIVE: Status post hysterectomy. There is a rounded soft tissue mass anterior to the rectum containing some gas as well as fluid/soft tissue density. Possible necrotic neoplasm. Rule out abscess. This has increased only minimally in size compared to the prior examination. It now measures approximately 8.0 cm in diameter. BONES: No acute fracture. OTHER FINDINGS: None. IMPRESSION: Increasing widespread hepatic metastasis. Extensive intraperitoneal metastasis with numerous ventral hernias through which protrudes numerous metastatic deposits. Probable necrotic mass in the cul-de-sac with some gas as well. This is minimally increased in size from 01/10/2019. Differential diagnosis would include necrotic neoplasm or abscess. Status post hysterectomy. Cholelithiasis without evidence of cholecystitis. Ascites. Progress Note: Bloodwork, urinalysis, EKG, CT A/P ordered and reviewed. Dilaudid IVP, Zofran IVP and IV Fluids given. Progress - Re-Evaluation Re-evaluation Note: 01/31/19 15:41 EXAM IMPROVED FROM INITIAL D/W DR THOMAS WILL ADMIT PS PAIN INITIALLY IMPROVED W DILAUDID BUT NOW RECURRING. STILL AGREES WO HOSPICE EVAL - Data Reviewed Data Reviewed: Lab, Diagnostic imaging, Old records Medical Decision Making Medical Decision Making: ABD PAIN ON CHRONIC PAIN MEDS HO MET CA. RO OBSTRUCT, MASS COMPRESSION, CONSTIPATION. CT LABS PAIN RX Disposition Counseled Patient/Family Regarding: Studies Performed, Diagnosis - Disposition Disposition: HOSPITALIZED Disposition Time: 15:49 Condition: SERIOUS - POA Present On Arrival: None - Clinical Impression Clinical Impression: Metastasis from cancer of uterus, Abdominal pain, Abdominal mass - PA / CAR UNLOADER / Resident Statement MD/DO has reviewed & agrees with the documentation as recorded. (Sanjuanita Jose) - Scribe Statement The provider has reviewed the documentation as recorded by the Scribe Provider Attestation: All medical record entries made by the Scribe were at my direction and personally dictated by me. I have reviewed the chart and agree that the record accurately reflects my personal performance of the history, physical exam, medical decision making, and the department course for this patient. I have also personally directed, reviewed, and agree with the discharge instructions and disposition.
[2019-01-31 11:15] LABS: BASO % 0.2 % (0.0-2.0); EOS % 0.3 % (0.0-4.0); HEMOGLOBIN 7.6 g/dL (11.0-16.0); LYMPH # 0.5 K/uL (1.0-4.3); LYMPH % 3.6 % (20.0-40.0); MEAN CORPUSCULAR HEMOGLOBIN 26.2 pg (27.0-31.0); MEAN CORPUSCULAR HGB CONC 32.7 g/dL (33.0-37.0); MEAN PLATELET VOLUME 7.7 fL (7.2-11.7); MONO # 1.1 K/uL (0.0-0.8); MONO % 7.5 % (0.0-10.0); NEUT # 12.5 K/uL (1.8-7.0); NEUT % 88.4 % (50.0-75.0); NRBC % 0.3 % (0.0-2.0); PLATELET COUNT 205 K/uL (130-400); RBC 2.91 Mil/uL (3.80-5.20); RED CELL DISTRIBUTION WIDTH 18.2 % (11.5-14.5); WHITE BLOOD COUNT 14.1 K/uL (4.8-10.8)
[2019-01-31] MEDS ORDERED: Sodium Chloride 0.9% 1,000 ML ONE (11:20)
[2019-01-31] MEDS ORDERED: Iohexol 240 (50 ml) ONE (11:20)
[2019-01-31 11:28] LABS: ALB/GLOB RATIO 0.8 (1.0-2.1); ALBUMIN 2.9 g/dL (3.5-5.0); ALT/SGPT 14 U/L (9-52); AST/SGOT 62 U/L (14-36); BLOOD UREA NITROGEN 16 mg/dL (7-17); CALCIUM 8.5 mg/dl (8.6-10.4); GFR NON-AFRICAN AMERICAN > 60; LIPASE 28 U/L (23-300)
[2019-01-31] MEDS ORDERED: HYDROmorphone 1 mg/ml ISec ONE (11:31)
[2019-01-31 11:46] LABS: ANISOCYTOSIS SLIGHT; BANDS 5 % (0-2); HYPOCHROMIC SLIGHT; LYMPHOCYTE 4 % (20-40); MONOCYTE 11 % (0-10); NEUTROPHIL 80 % (50-75); PLATELET ESTIMATE NORMAL (NORMAL); TOTAL CELLS COUNTED 100
[2019-01-31] MEDS ORDERED: Iodixanol 320 MG/ML 100 ML BOTTLE IV ONE (14:27)
--- NOTE | 2019-01-31 15:31 | CT ---
Date of service: 01/31/2019 PROCEDURE: CT Abdomen and Pelvis with contrast HISTORY: abd pain HO MET CA COMPARISON: 01/10/2019 TECHNIQUE: Contrast dose: 100 mL Visipaque 320 Radiation dose: Total exam DLP = 966.26 mGy-cm. This CT exam was performed using one or more of the following dose reduction techniques: Automated exposure control, adjustment of the mA and/or kV according to patient size, and/or use of iterative reconstruction technique. FINDINGS: LOWER THORAX: Unremarkable. LIVER: Multiple low-density hepatic masses increased in number from prior examination, likely reflecting metastatic disease. No biliary dilatation. Smooth contour. GALLBLADDER AND BILE DUCTS: Sludge and cholelithiasis within gallbladder lumen. No mural thickening or pericholecystic fluid. PANCREAS: Unremarkable. No gross lesion or ductal dilatation. SPLEEN: Unremarkable. ADRENALS: Unremarkable. No mass. KIDNEYS AND URETERS: 2.8 cm right upper pole renal cortical cyst, unchanged. No other renal mass. No calculus or hydronephrosis. VASCULATURE: Unremarkable. No aortic aneurysm. There is atherosclerotic calcification of the abdominal aorta. BOWEL: No bowel obstruction. No abnormal bowel loops are identified. APPENDIX: Not identified. PERITONEUM: Numerous low to intermediate attenuation masses are seen throughout the peritoneal cavity, many of which protrudes through ventral abdominal defects. There is a persistent large mass in the left upper quadrant of the abdomen, anterior to the lower pole of the left kidney. This has increased mildly in size when compared to the prior examination. Once again, ascites is noted. LYMPH NODES: Low-density retroperitoneal lymphadenopathy is identified as on prior examination. BLADDER: Unremarkable. REPRODUCTIVE: Status post hysterectomy. There is a rounded soft tissue mass anterior to the rectum containing some gas as well as fluid/soft tissue density. Possible necrotic neoplasm. Rule out abscess. This has increased only minimally in size compared to the prior examination. It now measures approximately 8.0 cm in diameter. BONES: No acute fracture. OTHER FINDINGS: None. IMPRESSION: Increasing widespread hepatic metastasis. Extensive intraperitoneal metastasis with numerous ventral hernias through which protrudes numerous metastatic deposits. Probable necrotic mass in the cul-de-sac with some gas as well. This is minimally increased in size from 01/10/2019. Differential diagnosis would include necrotic neoplasm or abscess. Status post hysterectomy. Cholelithiasis without evidence of cholecystitis. Ascites.
[2019-01-31 15:49] LABS: SQUAMOUS EPITHIAL 4 /hpf (0-5); URINE BACTERIA RARE (<OCC); URINE BILIRUBIN NEGATIVE (NEGATIVE); URINE BLOOD 1+ (NEGATIVE); URINE CLARITY Hazy (Clear); URINE COLOR Yellow (YELLOW); URINE GLUCOSE (UA) NORMAL (Normal); URINE LEUKOCYTE ESTERASE 1+ Leu/uL (Negative); URINE PROTEIN 1+ mg/dL (NEGATIVE); URINE UROBILINOGEN NORMAL mg/dL (0.2-1.0)
--- NOTE | 2019-01-31 16:37 | CP.PCM.HP ---
<KishnatammyLucho - Last Filed: 01/31/19 17:30> History of Present Illness - History of Present Illness History of Present Illness: PGY-[address] History and [address] Gonzalez Patient is a 68 year old female with PMHx metastatic uterine carcinoma. Patient has been admitted to our service in the past and was recently discharged. She has widely metastatic uterine carcinoma and is aware of her condition and prognosis, and made aware of her most recent CT results showing widespread disease. Patient is currently taking multiple medications for pain including percocet, oxycontin, morphine, and continues to have pain, particularly in her abdomen. Patient is having normal bowel movements, not dark or bloody. Patient had been previously undergoing chemotherapy treatments with her oncologist at [facility] in the [place], though has stopped taking chemo at this point due to her poor prognosis. PMHx: metastatic uterine carcinosarcoma PSHx: Hysterectomy (11/2015) Allergies: NKDA Home Meds: Multiple medications for pain including percocet, morphine, oxycodone. Ferrlicit Family Hx: unknown Social Hx: denies alcohol, tobacco, or illicit drug use. Heme/ONC: Dr. Ryan, [facility] Code Status: DNR/DNI Daughter: Orin [phone] Present on Admission - Present on Admission Any Indicators Present on Admission: No Review of Systems - Constitutional Constitutional: absent: Chills, Fever, Weight Loss - EENT Eyes: absent: Blurred Vision, Diplopia - Cardiovascular Cardiovascular: absent: Chest Pain, Palpitations - Respiratory Respiratory: Cough Additional comments: congestion/secretions - Gastrointestinal Gastrointestinal: Abdominal Pain, Nausea, Vomiting. absent: Diarrhea - Genitourinary Genitourinary: absent: Dysuria, Flank Pain - Menstruation Menstruation: Post Menopausal (s/p hysterectomy) - Musculoskeletal Musculoskeletal: Back Pain, Muscle Weakness - Neurological Neurological: absent: Dizziness, Weakness - Psychiatric Psychiatric: Depression. absent: Confusion - Endocrine Endocrine: Fatigue Past Patient History - Past Social History Smoking Status: Never Smoked - HEMATOLOGICAL/ONCOLOGICAL Hx Cancer: Yes (Uterus) - GENITOURINARY/GYNECOLOGICAL Hx Genitourinary Disorders: Yes Hx Uterine Cancer: Yes Other/Comment: Uterine Ca. S/P Hysterectomy - PSYCHIATRIC Hx Substance Use: No - SURGICAL HISTORY Hx Surgeries: Yes Hx Dilation and Curettage: Yes (ectopic preg) Hx Hysterectomy: Yes Other/Comment: ectopic 1982 - ANESTHESIA Hx Anesthesia: Yes Hx Anesthesia Reactions: No Hx Malignant Hyperthermia: No Meds Allergies/Adverse Reactions: Allergies Allergy/AdvReac Type Severity Reaction Status Date / Time No Known Allergies Allergy Verified 01/17/19 10:34 Physical Exam - Constitutional Appears: Chronically Ill - Head Exam Head Exam: ATRAUMATIC, NORMOCEPHALIC - Eye Exam Eye Exam: EOMI - ENT Exam ENT Exam: Mucous Membranes Moist - Respiratory Exam Respiratory Exam: Clear to Auscultation Bilateral, NORMAL BREATHING PATTERN. absent: Rhonchi, Wheezes - Cardiovascular Exam Cardiovascular Exam: REGULAR RHYTHM, +S1, +S2 - GI/Abdominal Exam GI & Abdominal Exam: Mass Additional comments: Distended, irregular with palpable mass lesions - Extremities Exam Extremities exam: Positive for: pedal edema. Negative for: tenderness - Neurological Exam Neurological exam: Alert, CN II-XII Intact, Oriented x3 - Psychiatric Exam Psychiatric exam: Depressed - Skin Skin Exam: Dry, Intact Results - Vital Signs Recent Vital Signs: Last Vital Signs Temp 98.4 F 01/31/19 14:00 Pulse 104 H 01/31/19 14:00 Resp 18 01/31/19 14:00 BP 105/67 01/31/19 14:00 Pulse Ox 97 01/31/19 16:11 - Labs Result Diagrams: 01/31/19 11:10 01/31/19 11:10 Labs: Laboratory Results - last 24 hr 01/31/19 01/31/19 01/31/19 11:10 11:10 11:59 WBC 14.1 H RBC 2.91 L Hgb 7.6 L Hct 23.3 L MCV 80.0 L MCH 26.2 L MCHC 32.7 L RDW 18.2 H Plt Count 205 MPV 7.7 Neut % (Auto) 88.4 H Lymph % (Auto) 3.6 L George % (Auto) 7.5 Eos % (Auto) 0.3 Baso % (Auto) 0.2 Neut # (Auto) 12.5 H Lymph # (Auto) 0.5 L George # (Auto) 1.1 H Eos # (Auto) 0.0 Baso # (Auto) 0.0 Neutrophils % (Manual) 80 H Band Neutrophils % 5 H Lymphocytes % (Manual) 4 L Monocytes % (Manual) 11 H Platelet Estimate Normal Hypochromasia (manual) Slight Anisocytosis (manual) Slight Sodium 137 Potassium 3.9 Chloride 99 Carbon Dioxide 26 Anion Gap 16 BUN 16 Creatinine 0.8 Est GFR ( Amer) > 60 Est GFR (Non-Af Amer) > 60 Random Glucose 93 Calcium 8.5 L Total Bilirubin 0.4 AST 62 H ALT 14 Alkaline Phosphatase 162 H Total Protein 6.6 Albumin 2.9 L Globulin 3.7 Albumin/Globulin Ratio 0.8 L Lipase 28 Urine Color Urine Clarity Urine pH Ur Specific [place] Urine Protein Urine Glucose (UA) Urine Ketones Urine Blood Urine Nitrate Urine Bilirubin Urine Urobilinogen Ur Leukocyte Esterase Urine WBC (Auto) Urine RBC (Auto) Ur Squamous Epith Cells Urine Bacteria Blood Type A POSITIVE Antibody Screen Negative 01/31/19 15:34 WBC RBC Hgb Hct MCV MCH MCHC RDW Plt Count MPV Neut % (Auto) Lymph % (Auto) George % (Auto) Eos % (Auto) Baso % (Auto) Neut # (Auto) Lymph # (Auto) George # (Auto) Eos # (Auto) Baso # (Auto) Neutrophils % (Manual) Band Neutrophils % Lymphocytes % (Manual) Monocytes % (Manual) Platelet Estimate Hypochromasia (manual) Anisocytosis (manual) Sodium Potassium Chloride Carbon Dioxide Anion Gap BUN Creatinine Est GFR ( Amer) Est GFR (Non-Af Amer) Random Glucose Calcium Total Bilirubin AST ALT Alkaline Phosphatase Total Protein Albumin Globulin Albumin/Globulin Ratio Lipase Urine Color Yellow Urine Clarity Hazy Urine pH 6.0 Ur Specific [place] 1.010 Urine Protein 1+ H Urine Glucose (UA) Normal Urine Ketones Negative Urine Blood 1+ H Urine Nitrate Negative Urine Bilirubin Negative Urine Urobilinogen Normal Ur Leukocyte Esterase 1+ H Urine WBC (Auto) 18 H Urine RBC (Auto) 15 H Ur Squamous Epith Cells 4 Urine Bacteria Rare Blood Type Antibody Screen Assessment & Plan - Assessment and Plan (Free Text) Assessment: 68 year old female with PMHx metastatic uterine CA presents with increasing pain from her cancer. Code status DNR/DNI. Patient agrees to hospice eval. Plan Metastatic uterine CA CT abd/pelvis 01/31 Increasing widespread hepatic metastasis. Extensive intraperitoneal metastasis with numerous ventral hernias through which protrudes numerous metastatic deposits. Probable necrotic mass in the cul-de-sac with some gas as well. This is minimally increased in size from 01/10/2019. Differential diagnosis would include necrotic neoplasm or abscess. Status post hysterectomy. Cholelithiasis without evidence of cholecystitis. Ascites. -Palliative care consult, f/u -Hospice eval, f/u -Pastoral care -Case management eval for hospice -No labs Symptom management -Dilaudid 1mg Q2hr prn -Zofran 4mg Q4 prn nausea -Duonebs Q4 prn SOB -Medicine team to contact [facility] to confirm curr ent home pain meds PPx: -DVT c/i 2/2 anemia -Regular diet Assessment and plan d/w Dr. Lisa Isbell, PGY-1 <Sara Gonzalez V - Last Filed: 02/01/19 07:42> Results - Vital Signs Recent Vital Signs: Last Vital Signs Temp 98.1 F 02/01/19 07:00 Pulse 100 H 02/01/19 07:00 Resp 20 02/01/19 07:00 BP 129/80 02/01/19 07:00 Pulse Ox 96 02/01/19 07:00 - Labs Result Diagrams: 01/31/19 11:10 01/31/19 11:10 Labs: Laboratory Results - last 24 hr 01/31/19 01/31/19 01/31/19 11:10 11:10 11:59 WBC 14.1 H RBC 2.91 L Hgb 7.6 L Hct 23.3 L MCV 80.0 L MCH 26.2 L MCHC 32.7 L RDW 18.2 H Plt Count 205 MPV 7.7 Neut % (Auto) 88.4 H Lymph % (Auto) 3.6 L George % (Auto) 7.5 Eos % (Auto) 0.3 Baso % (Auto) 0.2 Neut # (Auto) 12.5 H Lymph # (Auto) 0.5 L George # (Auto) 1.1 H Eos # (Auto) 0.0 Baso # (Auto) 0.0 Neutrophils % (Manual) 80 H Band Neutrophils % 5 H Lymphocytes % (Manual) 4 L Monocytes % (Manual) 11 H Platelet Estimate Normal Hypochromasia (manual) Slight Anisocytosis (manual) Slight Sodium 137 Potassium 3.9 Chloride 99 Carbon Dioxide 26 Anion Gap 16 BUN 16 Creatinine 0.8 Est GFR ( Amer) > 60 Est GFR (Non-Af Amer) > 60 Random Glucose 93 Calcium 8.5 L Total Bilirubin 0.4 AST 62 H ALT 14 Alkaline Phosphatase 162 H Total Protein 6.6 Albumin 2.9 L Globulin 3.7 Albumin/Globulin Ratio 0.8 L Lipase 28 Urine Color Urine Clarity Urine pH Ur Specific [place] Urine Protein Urine Glucose (UA) Urine Ketones Urine Blood Urine Nitrate Urine Bilirubin Urine Urobilinogen Ur Leukocyte Esterase Urine WBC (Auto) Urine RBC (Auto) Ur Squamous Epith Cells Urine Bacteria Blood Type A POSITIVE Antibody Screen Negative 01/31/19 15:34 WBC RBC Hgb Hct MCV MCH MCHC RDW Plt Count MPV Neut % (Auto) Lymph % (Auto) George % (Auto) Eos % (Auto) Baso % (Auto) Neut # (Auto) Lymph # (Auto) George # (Auto) Eos # (Auto) Baso # (Auto) Neutrophils % (Manual) Band Neutrophils % Lymphocytes % (Manual) Monocytes % (Manual) Platelet Estimate Hypochromasia (manual) Anisocytosis (manual) Sodium Potassium Chloride Carbon Dioxide Anion Gap BUN Creatinine Est GFR ( Amer) Est GFR (Non-Af Amer) Random Glucose Calcium Total Bilirubin AST ALT Alkaline Phosphatase Total Protein Albumin Globulin Albumin/Globulin Ratio Lipase Urine Color Yellow Urine Clarity Hazy Urine pH 6.0 Ur Specific [place] 1.010 Urine Protein 1+ H Urine Glucose (UA) Normal Urine Ketones Negative Urine Blood 1+ H Urine Nitrate Negative Urine Bilirubin Negative Urine Urobilinogen Normal Ur Leukocyte Esterase 1+ H Urine WBC (Auto) 18 H Urine RBC (Auto) 15 H Ur Squamous Epith Cells 4 Urine Bacteria Rare Blood Type Antibody Screen Attending/Attestation - Attestation I have personally seen and examined this patient.: Yes I have fully participated in the care of the patient.: Yes I have reviewed all pertinent clinical information: Yes Notes (Text): This is late computer entry for 02/01/2019/ Patient seen, examined and case discussed with medical records manager. Patient seen in BED 2 in the Emergency Room approximately 5PM on 01/31/19. No family present. Accompanied with the resident. She has history of metastatic urine cancer. She had been received chemotherapy at [facility] however she has been told that poor prognosis no longer chemotherapy will be palliative. She understands she is slowly decompensating from her cancer. She states she is completed her antibiotic from last admission for urinary tract infection. I have reconfirmed her DNR/DNI status; patient has completed POLST. Patient is amenable to comfort measures and hospice evaluation. We have went over goals of care: she reports she does not want to be suffering, she does not want to be alone at home for fear of falling or something bad happening to her. Patient does not want blood work taken in the morning. We will place consults to pastoral care, pallative care and case management for hospice evaluation. We will place as needed prn medications for pain, nausea, and for difficulty breathing.
[2019-01-31] MEDS ORDERED: HYDROmorphone 1 mg/ml ISec IVP STA (16:55)
[2019-01-31] MEDS ORDERED: HYDROmorphone 1 mg/ml ISec IVP PRN (17:28)
[2019-01-31] MEDS ORDERED: Albuterol-Ipratrop 3 mg / 0.5 (3 ml) UD INH PRN (17:29)
[2019-01-31 21:04] VITALS: RESP 20
[2019-01-31] MEDS: HYDROmorphone 1 mg/ml ISec IVP PRN (21:32)
[2019-02-01] MEDS: HYDROmorphone 1 mg/ml ISec IVP PRN ×5 (02:30→21:59)
--- NOTE | 2019-02-01 10:32 | CP.PCM.PN ---
Subjective - Date & Time of Evaluation Date of Evaluation: 02/01/19 Time of Evaluation: 10:40 - Subjective Subjective: PGY-[address] Gonzalez Patient seen and examined at [facility]. No acute events. Patient required Dilaudid throughout the night for pain, but is complaining moreso of nausea. Zofran helping somewhat, but continues with nausea despite zofran and patient vomited as well. Denies chest pain, SOB, headache, cough. Objective - Vital Signs/Intake and Output Vital Signs (last 24 hours): Temp Pulse Resp BP Pulse Ox 98.1 F 100 H 20 129/80 96 02/01/19 07:00 02/01/19 07:00 02/01/19 07:00 02/01/19 07:00 02/01/19 07:00 Intake and Output: 02/01/19 02/01/19 06:59 18:59 Intake Total 120 Output Total 0 Balance 120 - Medications Medications: Current Medications Albuterol/Ipratropium (Duoneb 3 Mg/0.5 Mg (3 Ml) Ud) 3 ml INH RQ4 PRN PRN Reason: Shortness of Breath Hydromorphone HCl (Dilaudid) 1 mg IVP Q4H PRN PRN Reason: Pain, severe (8-10) Ondansetron HCl (Zofran Inj) 4 mg IVP Q4 PRN PRN Reason: Nausea/Vomiting Last Admin: 02/01/19 02:30 Dose: 4 mg - Labs Labs: 01/31/19 11:10 01/31/19 11:10 - Constitutional Appears: No Acute Distress, Chronically Ill - Head Exam Head Exam: ATRAUMATIC, NORMOCEPHALIC - Eye Exam Eye Exam: EOMI - ENT Exam ENT Exam: Mucous Membranes Moist - Respiratory Exam Respiratory Exam: Clear to Ausculation Bilateral, NORMAL BREATHING PATTERN. absent: Rhonchi, Wheezes - Cardiovascular Exam Cardiovascular Exam: REGULAR RHYTHM, +S1, +S2 - GI/Abdominal Exam GI & Abdominal Exam: Firm ( ), Tenderness, Mass. absent: Rebound - Extremities Exam Extremities Exam: Pedal Edema. absent: Tenderness - Neurological Exam Neurological Exam: Alert, Awake, Oriented x3 - Psychiatric Exam Psychiatric exam: Depressed - Skin Skin Exam: Dry, Intact Assessment and Plan - Assessment and Plan (Free Text) Assessment: 68 year old female with PMHx metastatic uterine CA presents with increasing pain from her cancer. Code status DNR/DNI. Patient agrees to hospice eval. Plan Metastatic uterine CA CT abd/pelvis 01/31 Increasing widespread hepatic metastasis. Extensive intraperitoneal metastasis with numerous ventral hernias through which protrudes numerous metastatic deposits. Probable necrotic mass in the cul-de-sac with some gas as well. This is minimally increased in size from 01/10/2019. Differential diagnosis would include necrotic neoplasm or abscess. Status post hysterectomy. Cholelithiasis without evidence of cholecystitis. Ascites. -Palliative care consult, Bernadette Combs APN --C/w aggressive pain management --Pleasure food as tolerated -Hospice eval, f/u -Pastoral care -Case management eval for hospice -No labs Symptom management -Dilaudid 1mg Q2hr prn -Zofran 4mg Q4 prn nausea -Duonebs Q4 prn SOB Home pain medications confirmed with pharmacy -Morphine ER 30 mg PO Q12 prn -Morphine IR 15 mg PO Q4 prn breakthrough pain -C/w IV dilaudid, pending hospice recs PPx -DVT c/i 2/2 anemia -Regular diet -DNR/DNI Assessment and plan d/w Dr. Lisa Isbell, PGY-1
--- NOTE | 2019-02-01 12:09 | PCM.PCON ---
History of Present Illness - History of Present Illness History of Present Illness: Palliative consult requested by Doctor Gonzalez for goals of care discussion Patient is a 68 yo lady known to me from previous admissions, admitted from home with worsening abdominal pain and distention X 2 days. Patient has been admitted multiple times in recent past for the same symptoms 2nd to her ovarian metastatic disease. Patient feels overwhelmed by the symptoms at this time and was asking for comfort care only. Patient understand that she was approaching end of her life and wanted to be placed at the institution if possible as she lives home alone. Patient is affraid of dying home alone. Palliative care was asked to assist with hospice evaluation process/evaluation. PMH: Metastatic ovarian cancer, S/P chemo Soc. Hx: single, lives at home with her daughter, daughter works long hours, patient is home alone most of the day Fam. Hx: denied Review of Systems - Constitutional Constitutional: Fatigue, Malaise, Weakness - EENT Eyes: absent: As Per HPI, Blind Spots, Blurred Vision, Change in Vision, Decreased Night Vision, Diplopia, Discharge, Dry Eye, Exophthalmos, Floaters, Irritation, Itchy Eyes, Loss of Peripheral Vision, Pain, Photophobia, Requires Corrective Lenses, Sees Flashes, Spots in Vision, Tunnel Vision, Other Visual Disturbances, Loss of Vision, Other Ears: absent: As Per HPI, Decreased Hearing, Ear Discharge, Ear Pain, Tinnitus, Abnormal Hearing, Disequilibrium, Dizziness, Other Nose/Mouth/Throat: Dry Mouth - Breasts Breasts: absent: As Per HPI, Change in Shape, Mass, Pain, Nipple Discharge, Nipple Inversion, Skin Changes, Swelling, Other - Cardiovascular Cardiovascular: Dyspnea, Dyspnea on Exertion - Respiratory Respiratory: Dyspnea, Dyspnea on Exertion - Gastrointestinal Gastrointestinal: Bloating, Nausea, Vomiting - Genitourinary Genitourinary: absent: As Per HPI, Change in Urinary Stream, Difficulty Urinating, Dysuria, Flank Pain, Hematuria, Pyuria, Nocturia, Urinary Incontinence, Urinary Frequency, Urinary Hesitance, Urinary Urgency, Voiding Freq/Small Amts, Freq UTI, Hx Renal/Bladder Calculi, Hx /Renal Surgery, Bladder Distension, Other - Reproductive: Female Reproductive:Female: Post Menopausal - Menstruation Menstruation: Post Menopausal - Musculoskeletal Musculoskeletal: Abnormal Gait, Limited Range of Motion, Muscle Weakness - Integumentary Integumentary: Dry Skin - Neurological Neurological: absent: As Per HPI, Abnormal Gait, Abnormal Hearing, Abnormal Movements, Abnormal Speech, Behavioral Changes, Burning Sensations, Confusion, Convulsions, Disequilibrium, Dizziness, Numbness, Focal Weakness, Frequent Falls, Headaches, Lack of Coordination, Loss of Vision, Memory Loss, Paresthesias, Radicular Pain, Restless Legs, Sensory Deficit, Syncope, Tingling, Tremor, Vertigo, Weakness, Other Visual Disturbances, Other - Psychiatric Psychiatric: Depression, Hopelessness - Endocrine Endocrine: Change in Body Appearance - Hematologic/Lymphatic Hematologic: absent: As Per HPI, Easy Bleeding, Easy Bruising, Lymphadenopathy, Other Physical Exam - Constitutional Appears: No Acute Distress, Chronically Ill - Head Exam Head Exam: ATRAUMATIC, NORMAL INSPECTION, NORMOCEPHALIC - Eye Exam Eye Exam: EOMI, Normal appearance, PERRL Pupil Exam: NORMAL ACCOMODATION, PERRL - ENT Exam ENT Exam: Mucous Membranes Dry - Neck Exam Neck exam: Positive for: Normal Inspection - Respiratory Exam Respiratory Exam: Decreased Breath Sounds, NORMAL BREATHING PATTERN - Cardiovascular Exam Cardiovascular Exam: Tachycardia, Irregular Rhythm, +S1, +S2 - GI/Abdominal Exam GI & Abdominal Exam: Distended, Firm, Guarding Additional comments: vomiting what looks like fecal material, intolerance of PO - Rectal Exam Rectal Exam: Deferred - Extremities Exam Extremities exam: Positive for: pedal edema - Back Exam Back exam: NORMAL INSPECTION - Neurological Exam Neurological exam: Alert, Oriented x3 - Psychiatric Exam Psychiatric exam: Anxious, Depressed - Skin Skin Exam: Dry, Intact, Normal Color, Warm Palliative Care Assessment - Pain Scale Pain Scale Used: Numeric - Pain Location Left, Right or Bilateral: Bilateral Pain Location Body Site: Abdomen - Pain Description Description: Constant, Pressure, Dull Intensity of pain at present: 8 Acceptable Level of Pain: 3-4 Radiation Location: Abdomen Variations/Patterns: Constantly present Site Observation: Abdomen Duration: months Pain Behavior: Moaning, Crying, Refusal to Eat, Facial Grimacing Aggravating Factors: None Alleviating Factors/Management Techniques: Medication, Relaxation Techniques, Inactivity - Nj Scale Sensory Perception: No Impairment Moisture: Rarely Moist Activity: Bedfast Mobility: Very Limited Nutrition: Probably Inadequate Friction & Shear: Problem Total Score - Skin Risk Assessment: 14 - Psychosocial Distress Patient screened for psychosocial distress: Yes Psychosocial Intervention(s): Patient's condition discussed with patient. She is aware of her poor prognois. Patent is now concerned with her comfort. She wishes to be free of pain. Patient is also afraid of being home alone or dying alone. Patient wishes to be placed at facility under hospice care. I reassured her of it. She stated being more peaceful now. Outcome: Referred to pastoral care, Resolved (need spiritual support.) Palliative Care - Goals Treatment Goal(s): Alleviate symptoms End of life care discussed: Yes - Plan Interdisciplinary involved: Nurse, curriculum manager, Pastoral care Discharge planning: Hospice (Patient is afraid of being home and dying alone.) Assessment & Plan - Assessment and Plan (Free Text) Assessment: Impression * This is terminally ill patient who realizes her diagnosis and prognosis * Severe cancer related pain * Abdominal distention and food intolerance * Vomiting * Psychosocial distress 2nd to lack of help at home and terminal diagnosis * Patient wishes to be helped with relieving of the symptoms * Patient agreed with Hospice care * Patient remains DNR/DNI Suggestion * Aggressive pain management for this chronic, cancer related pain. Consider Fentanyl patch as long acting pain controlling agent and Dilaudid IM for breakthrough pain * Only pleasure food as tolerated, mostly ice chips for hydration * Promote skin integrity, assist with repositioning in bed and am care * Hospice evaluation for placement at the institution * Pastoral care for support * DNR/DNI Palliative care will remain on board as needed. Advance care planing 35 min.
[2019-02-01] MEDS ORDERED: Morphine 4 MG/ML VIAL IVP STA (18:46)
[2019-02-02] MEDS: HYDROmorphone 1 mg/ml ISec IVP PRN ×4 (02:10→17:22)
--- NOTE | 2019-02-02 07:07 | CP.PCM.PN ---
Subjective - Date & Time of Evaluation Date of Evaluation: 02/02/19 Time of Evaluation: 07:07 - Subjective Subjective: Progress Note for Hospitalist service Patient seen and examined at bedside. She states she has persistent pain, but currently controlled. Objective - Vital Signs/Intake and Output Vital Signs (last 24 hours): Temp Pulse Resp BP Pulse Ox 98.3 F 104 H 20 115/74 98 02/02/19 00:04 02/02/19 00:04 02/02/19 00:04 02/02/19 00:04 02/02/19 00:04 Intake and Output: 02/02/19 02/02/19 06:59 18:59 Intake Total 280 Balance 280 - Medications Medications: Current Medications Albuterol/Ipratropium (Duoneb 3 Mg/0.5 Mg (3 Ml) Ud) 3 ml INH RQ4 PRN PRN Reason: Shortness of Breath Hydromorphone HCl (Dilaudid) 1 mg IVP Q4H PRN PRN Reason: Pain, severe (8-10) Last Admin: 02/02/19 06:14 Dose: 1 mg Ondansetron HCl (Zofran Inj) 4 mg IVP Q4 PRN PRN Reason: Nausea/Vomiting Last Admin: 02/01/19 19:01 Dose: 4 mg - Labs Labs: 01/31/19 11:10 01/31/19 11:10
[2019-02-02] MEDS ORDERED: HYDROmorphone 1 mg/ml ISec IVP STA (10:01)
[2019-02-02 16:38] VITALS: BP 124/77; PULSE 104; TEMP 97.4; O2SAT 94
--- NOTE | 2019-02-02 18:43 | CP.PCM.DIS ---
Provider - Provider Date of Admission: 01/31/19 15:50 Attending physician: Sara Gonzalez DO Consults: 01/31/19 16:50 Fountain Attendant [Case Management Referral] Routine Comment: Physician Instructions: Reason For Exam: Reason for Referral: Hospice Eval 01/31/19 16:51 Palliative Care Consult Routine Comment: Consulting Provider: Bernadette Combs Physician Instructions: Reason For Exam: hospice eval Palliative Care [Nursing Referral for Palliative Care] Routine Comment: Physician Instructions: Reason For Exam: comfort care, potential hospice 01/31/19 17:33 Pastoral Care Referral Routine Comment: Physician Instructions: Reason For Exam: Metastatic CA, end-of-life care 02/01/19 12:30 Pastoral Care Referral Routine Comment: Physician Instructions: Reason For Exam: Spiritual support, dying patient Time Spent in preparation of Discharge (in minutes): 35 Diagnosis - Discharge Diagnosis (1) Uterine carcinoma Status: Chronic Hospital Course - Lab Results Lab Results: Most Recent Lab Values WBC 14.1 K/uL (4.8-10.8) H 01/31/19 11:10 RBC 2.91 Mil/uL (3.80-5.20) L 01/31/19 11:10 Hgb 7.6 g/dL (11.0-16.0) L 01/31/19 11:10 Hct 23.3 % (34.0-47.0) L 01/31/19 11:10 MCV 80.0 fL (81.0-99.0) L 01/31/19 11:10 MCH 26.2 pg (27.0-31.0) L 01/31/19 11:10 MCHC 32.7 g/dL (33.0-37.0) L 01/31/19 11:10 RDW 18.2 % (11.5-14.5) H 01/31/19 11:10 Plt Count 205 K/uL (130-400) 01/31/19 11:10 MPV 7.7 fL (7.2-11.7) 01/31/19 11:10 Neut % (Auto) 88.4 % (50.0-75.0) H 01/31/19 11:10 Lymph % (Auto) 3.6 % (20.0-40.0) L 01/31/19 11:10 Phelps % (Auto) 7.5 % (0.0-10.0) 01/31/19 11:10 Eos % (Auto) 0.3 % (0.0-4.0) 01/31/19 11:10 Baso % (Auto) 0.2 % (0.0-2.0) 01/31/19 11:10 Neut # (Auto) 12.5 K/uL (1.8-7.0) H 01/31/19 11:10 Lymph # (Auto) 0.5 K/uL (1.0-4.3) L 01/31/19 11:10 Phelps # (Auto) 1.1 K/uL (0.0-0.8) H 01/31/19 11:10 Eos # (Auto) 0.0 K/uL (0.0-0.7) 01/31/19 11:10 Baso # (Auto) 0.0 K/uL (0.0-0.2) 01/31/19 11:10 Neutrophils % (Manual) 80 % (50-75) H 01/31/19 11:10 Band Neutrophils % 5 % (0-2) H 01/31/19 11:10 Lymphocytes % (Manual) 4 % (20-40) L 01/31/19 11:10 Monocytes % (Manual) 11 % (0-10) H 01/31/19 11:10 Platelet Estimate Normal (NORMAL) 01/31/19 11:10 Hypochromasia (manual) Slight 01/31/19 11:10 Anisocytosis (manual) Slight 01/31/19 11:10 Sodium 137 mmol/L (132-148) 01/31/19 11:10 Potassium 3.9 mmol/L (3.6-5.2) 01/31/19 11:10 Chloride 99 mmol/L (98-107) 01/31/19 11:10 Carbon Dioxide 26 mmol/L (22-30) 01/31/19 11:10 Anion Gap 16 (10-20) 01/31/19 11:10 BUN 16 mg/dL (7-17) 01/31/19 11:10 Creatinine 0.8 mg/dL (0.7-1.2) 01/31/19 11:10 Est GFR ( Amer) > 60 01/31/19 11:10 Est GFR (Non-Af Amer) > 60 01/31/19 11:10 Random Glucose 93 mg/dL (65-105) 01/31/19 11:10 Calcium 8.5 mg/dl (8.6-10.4) L 01/31/19 11:10 Total Bilirubin 0.4 mg/dL (0.2-1.3) 01/31/19 11:10 AST 62 U/L (14-36) H 01/31/19 11:10 ALT 14 U/L (9-52) 01/31/19 11:10 Alkaline Phosphatase 162 U/L (38-126) H 01/31/19 11:10 Total Protein 6.6 g/dL (6.3-8.3) 01/31/19 11:10 Albumin 2.9 g/dL (3.5-5.0) L 01/31/19 11:10 Globulin 3.7 gm/dL (2.2-3.9) 01/31/19 11:10 Albumin/Globulin Ratio 0.8 (1.0-2.1) L 01/31/19 11:10 Lipase 28 U/L (23-300) 01/31/19 11:10 Urine Color Yellow (YELLOW) 01/31/19 15:34 Urine Clarity Hazy (Clear) 01/31/19 15:34 Urine pH 6.0 (5.0-8.0) 01/31/19 15:34 Ur Specific M[place] 1.010 (1.003-1.030) 01/31/19 15:34 Urine Protein 1+ mg/dL (NEGATIVE) H 01/31/19 15:34 Urine Glucose (UA) Normal mg/dL (Normal) 01/31/19 15:34 Urine Ketones Negative mg/dL (NEGATIVE) 01/31/19 15:34 Urine Blood 1+ (NEGATIVE) H 01/31/19 15:34 Urine Nitrate Negative (NEGATIVE) 01/31/19 15:34 Urine Bilirubin Negative (NEGATIVE) 01/31/19 15:34 Urine Urobilinogen Normal mg/dL (0.2-1.0) 01/31/19 15:34 Ur Leukocyte Esterase 1+ Theo/uL (Negative) H 01/31/19 15:34 Urine WBC (Auto) 18 /hpf (0-5) H 01/31/19 15:34 Urine RBC (Auto) 15 /hpf (0-3) H 01/31/19 15:34 Ur Squamous Epith Cells 4 /hpf (0-5) 01/31/19 15:34 Urine Bacteria Rare (<OCC) 01/31/19 15:34 Blood Type A POSITIVE 01/31/19 11:59 Antibody Screen Negative 01/31/19 11:59 - Hospital Course Hospital Course: On admission: Patient is a 68 year old female with PMHx metastatic uterine carcinoma. Patient has been admitted to our service in the past and was recently discharged. She has widely metastatic uterine carcinoma and is aware of her condition and prognosis, and made aware of her most recent CT results showing widespread disease. Patient is currently taking multiple medications for pain including percocet, oxycontin, morphine, and continues to have pain, particularly in her abdomen. Patient is having normal bowel movements, not dark or bloody. Patient had been previously undergoing chemotherapy treatments with her oncologist at [facility] in the [place], though has stopped taking chemo at this point due to her poor prognosis. Hospital course: Patient was admitted for worsening pain from uterine carcinoma with metastasis to liver and abdomen. Imaging widespread metastasis to liver and abdomen. Patient was treated with Dilaudid and Zofran for pain control. Palliative care was consulted, who recommended aggressive pain management and Hospice evaluation. She was evaluated by [facility] who accepted patient to inpatient Hospice. Imaging: CT abd/pelvis Increasing widespread hepatic metastasis. Extensive intraperitoneal metastasis with numerous ventral hernias through which protrudes numerous metastatic deposits. Probable necrotic mass in the cul-de-sac with some gas as well. This is minimally increased in size from 01/10/2019. Differential diagnosis would include necrotic neoplasm or abscess. Status post hysterectomy. Cholelithiasis without evidence of cholecystitis. Ascites. Discharge: Patient was discharge to [facility] in patient. Discharge Exam - Head Exam Head Exam: ATRAUMATIC, NORMOCEPHALIC - Eye Exam Eye Exam: EOMI, PERRL - ENT Exam ENT Exam: Mucous Membranes Moist - Neck Exam Neck exam: Full Rom - Respiratory Exam Respiratory Exam: Clear to PA & Lateral, NORMAL BREATHING PATTERN. absent: Rales, Rhonchi, Wheezes, Respiratory Distress - Cardiovascular Exam Cardiovascular Exam: REGULAR RHYTHM, +S1, +S2. absent: Gallop, Rubs, Systolic Murmur - GI/Abdominal Exam GI & Abdominal Exam: Distended, Firm, Mass Additional comments: Multiple masses palpable in abdomen with tenderness - Extremities Exam Extremities exam: pedal edema, pedal pulses present - Neurological Exam Neurological exam: Alert, Oriented x3 - Psychiatric Exam Psychiatric exam: Depressed Additional comments: Tearful - Skin Skin Exam: Dry, Intact Discharge Plan - Follow Up Plan Condition: SERIOUS Disposition: HOSPICE - MEDICAL FACILITY
== END 2019-02-02 17:35 | disposition hospice, inpatient (51) ==
LOC: C.ER 10:13 → INTOOBSV 15:50 → C.9E 15:50 → C.3T 20:37
PROVIDERS: ADMIT Hospitalist; ATTEND Hospitalist
DX: C55 Malignant neoplasm of uterus, part unspecified (principal); C78.6 Secondary malignant neoplasm of retroperitoneum and peritoneum; C78.7 Secondary malignant neoplasm of liver and intrahepatic bile duct; G89.3 Neoplasm related pain (acute) (chronic); Z66 Do not resuscitate
CPT/HCPCS: 74177; 80053; 81001; 83690; 85025; 86850; 86900; 96374; 96375; 96376; 99285; G0378; J1170; J2270; J2405; J7030; Q9966; Q9967

== ENCOUNTER 2019-02-02 15:31 | Inpatient (IN) | payer OTHER ==
[2019-02-02 17:50] VITALS: BMI 33.1
[2019-02-03] MEDS ORDERED: Simethicone 80 mg Chewtab PO STA (04:42)
--- NOTE | 2019-02-03 06:51 | CP.PCM.HP ---
<Praveen Felix - Last Filed: 02/03/19 16:18> History of Present Illness - History of Present Illness History of Present Illness: History and physical for Dr. Gonzalez HPI: Patient is a 68 year old female with history of uterine cancer with diffuse metastasis to liver and abdomen who was admitted for intractable pain from cancer. She was discharged from inpatient to [facility]. Patient had previously undergoing chemotherapy treatments with her oncologist at [facility] in the [place], though she has stopped taking chemo at this point due to her poor prognosis. She vomits brown material intermittently. Her most recent imaging revealed widespread disease with metastasis to liver and abdomen. PMH: metastatic uterine carcinoma PSH: hysterectomy Home meds: Percocet, Morphine, Oxycodone, Ferrlecit. Allergies: NKDA Social history: denies alcohol, tobacco, or illicit drug use Family history: unknown Code status: DNR/DNI Present on Admission - Present on Admission Any Indicators Present on Admission: No Review of Systems - Constitutional Constitutional: absent: Chills, Fever - EENT Eyes: absent: Change in Vision Nose/Mouth/Throat: absent: Sore Throat - Cardiovascular Cardiovascular: absent: Chest Pain, Dyspnea - Gastrointestinal Gastrointestinal: Nausea, Vomiting Past Patient History - Past Medical History & Family History Past Medical History?: Yes - Past Social History Smoking Status: Never Smoked - HEMATOLOGICAL/ONCOLOGICAL Hx Cancer: Yes (Uterus) - MUSCULOSKELETAL/RHEUMATOLOGICAL Hx Falls: No - GENITOURINARY/GYNECOLOGICAL Hx Genitourinary Disorders: Yes Hx Uterine Cancer: Yes Other/Comment: Uterine Ca. S/P Hysterectomy - PSYCHIATRIC Hx Substance Use: No - SURGICAL HISTORY Hx Surgeries: Yes Hx Dilation and Curettage: Yes (ectopic preg) Hx Hysterectomy: Yes Other/Comment: ectopic 1981 - ANESTHESIA Hx Anesthesia: Yes Hx Anesthesia Reactions: No Hx Malignant Hyperthermia: No Meds Allergies/Adverse Reactions: Allergies Allergy/AdvReac Type Severity Reaction Status Date / Time No Known Allergies Allergy Verified 01/17/19 10:34 Physical Exam - Constitutional Appears: Chronically Ill Additional comments: Patient is nauseated, vomiting frequently, in pain. - Head Exam Head Exam: ATRAUMATIC, NORMOCEPHALIC - Eye Exam Eye Exam: EOMI, PERRL - ENT Exam ENT Exam: Mucous Membranes Dry - Neck Exam Neck exam: Positive for: Full Rom - Respiratory Exam Respiratory Exam: Clear to Auscultation Bilateral, NORMAL BREATHING PATTERN. absent: Rales, Rhonchi, Wheezes, Respiratory Distress - Cardiovascular Exam Cardiovascular Exam: REGULAR RHYTHM, +S1, +S2. absent: Gallop, Rubs, Systolic Murmur - GI/Abdominal Exam GI & Abdominal Exam: Distended, Firm, Mass Additional comments: Irregularly shaped masses palpable - Extremities Exam Extremities exam: Positive for: pedal edema - Back Exam Back exam: absent: CVA tenderness (L), CVA tenderness (R) - Neurological Exam Neurological exam: Alert, Oriented x3 - Psychiatric Exam Psychiatric exam: Depressed - Skin Skin Exam: Dry, Intact Results - Vital Signs Recent Vital Signs: Last Vital Signs Temp 98.3 F 02/02/19 23:48 Pulse 90 02/03/19 05:00 Resp 20 02/02/19 23:48 BP 120/75 02/03/19 05:00 Pulse Ox 97 02/02/19 23:48 Assessment & Plan - Assessment and Plan (Free Text) Assessment: 68 year old female with PMHx metastatic uterine CA presents with increasing pain from her cancer. Accepted to [facility]. Plan: Metastatic uterine CA Imaging during last admission revealed - Increasing widespread hepatic metastasis. Extensive intraperitoneal metastasis with numerous ventral hernias through which protrudes numerous metastatic deposits. Probable necrotic mass in the cul-de-sac with some gas as well. This is minimally increased in size from 01/10/2019. Differential diagnosis would include necrotic neoplasm or abscess. Status post hysterectomy. Cholelithiasis without evidence of cholecystitis. Ascites. Comfort measures -Zofran 8mg Q6 PRN -Scopolamine patch Q72 hours -Dilaudid 1mg IVP Q4 PRN -Ativan 1mg Q2 PRN -Fentanyl 1 patch QD Q72 Prophylaxis: -DVT contraindicated secondary to anemia -Diet, regular -Ensure Case discussed with Dr. Lisa Felix, PGY1 <Sara Gonzalez V - Last Filed: 02/04/19 19:23> Results - Vital Signs Recent Vital Signs: Last Vital Signs Temp 98.2 F 02/04/19 16:00 Pulse 110 H 02/04/19 16:00 Resp 18 02/04/19 16:00 BP 127/84 02/04/19 16:00 Pulse Ox 99 02/04/19 16:00 Attending/Attestation - Attestation I have personally seen and examined this patient.: Yes I have fully participated in the care of the patient.: Yes I have reviewed all pertinent clinical information: Yes Notes (Text): This is late computer entry for 02/03/19. Patient seen, examined and case discussed with medical insurance collector. Patient is admitted for hospice care given poor prognosis and intractable pain secondary to metastatic uterine cancer. Comfort measures DNR/DNI I spoke with patient and daughter at bedside during my encounter this morning.
--- NOTE | 2019-02-04 09:11 | CP.PCM.PN ---
<Shantell Rg - Last Filed: 02/04/19 15:48> Subjective - Date & Time of Evaluation Date of Evaluation: 02/04/19 Time of Evaluation: 09:10 - Subjective Subjective: Progress note for Dr. Gonzalez Patient was seen and examined at bedside in no acute distress. Patient denies having pain but complains of decreased appetite and occasional nausea. The patient denies chest pain, dyspnea, abdominal pain, fever, headaches, leg pain, and swelling. Patient vomited overnight and this morning. Objective - Vital Signs/Intake and Output Vital Signs (last 24 hours): Temp Pulse Resp BP Pulse Ox 97.8 F 105 H 20 126/81 98 02/04/19 08:10 02/04/19 08:10 02/04/19 08:10 02/04/19 08:10 02/04/19 08:10 Intake and Output: 02/04/19 02/04/19 06:59 18:59 Intake Total 0 Balance 0 - Medications Medications: Current Medications Acetaminophen (Tylenol 650 Mg Supp) 650 mg [place] Q6 PRN PRN Reason: Fever >100.4 F Fentanyl (Duragesic) 1 patch TD Q72H [facility] Last Admin: 02/02/19 18:34 Dose: Not Given Hydromorphone HCl (Dilaudid) 1 mg IVP Q4 PRN PRN Reason: Pain, severe (8-10) Last Admin: 02/04/19 05:45 Dose: 1 mg Lorazepam (Ativan) 1 mg IVP Q2H PRN PRN Reason: Agitation Last Admin: 02/03/19 09:20 Dose: 1 mg Ondansetron HCl (Zofran Inj) 8 mg IVP Q6 PRN PRN Reason: Nausea/Vomiting Scopolamine (Transderm-Scop) 1 patch TD Q3D [facility] Last Admin: 02/03/19 14:12 Dose: 1 patch - Constitutional Appears: No Acute Distress, Chronically Ill - Head Exam Head Exam: NORMAL INSPECTION - Eye Exam Eye Exam: EOMI - ENT Exam ENT Exam: Mucous Membranes Dry - Respiratory Exam Respiratory Exam: Clear to Ausculation Bilateral, NORMAL BREATHING PATTERN. absent: Rales, Rhonchi, Wheezes, Respiratory Distress - Cardiovascular Exam Cardiovascular Exam: REGULAR RHYTHM, +S1, +S2 - GI/Abdominal Exam GI & Abdominal Exam: Distended, Soft, Normal Bowel Sounds. absent: Tenderness - Extremities Exam Extremities Exam: Normal Inspection. absent: Pedal Edema, Tenderness - Neurological Exam Neurological Exam: Alert, Awake, Oriented x3 - Psychiatric Exam Psychiatric exam: Depressed - Skin Skin Exam: Dry, Normal Color, Warm Assessment and Plan - Assessment and Plan (Free Text) Plan: 68 year old female with PMHx metastatic uterine CA presents with increasing pain from her cancer. Accepted to [facility]. Plan: Metastatic uterine CA * Imaging during last admission revealed: Increasing widespread hepatic metastasis. Extensive intraperitoneal metastasis with numerous ventral hernias through which protrudes numerous metastatic deposits. Probable necrotic mass in the cul-de-sac with some gas as well. This is minimally increased in size from 01/10/2019. Differential diagnosis would include necrotic neoplasm or abscess. Status post hysterectomy. Cholelithiasis without evidence of cholecystitis. Ascites. * Comfort measures * Medications: * Zofran 8mg Q6 PRN * Simethicone 80mg PO QID * Scopolamine patch Q72 hours * Dilaudid 1mg IVP Q4 PRN * Ativan 0.5mg PO IV Q6h * Ativan 1mg Q2 PRN * Fentanyl 1 patch QD Q72 Prophylaxis * DVT contraindicated secondary to anemia * Diet, regular * Ensure Case discussed with Dr. Lisa Bradshaw, PGY2 <Sara Gonzalez V - Last Filed: 02/04/19 19:22> Objective - Vital Signs/Intake and Output Vital Signs (last 24 hours): Temp Pulse Resp BP Pulse Ox 98.2 F 110 H 18 127/84 99 02/04/19 16:00 02/04/19 16:00 02/04/19 16:00 02/04/19 16:00 02/04/19 16:00 - Medications Medications: Current Medications Acetaminophen (Tylenol 650 Mg Supp) 650 mg [place] Q6 PRN PRN Reason: Fever >100.4 F Fentanyl (Duragesic) 1 patch TD Q72H [facility] Last Admin: 02/02/19 18:34 Dose: Not Given Hydromorphone HCl (Dilaudid) 1 mg IVP Q4 PRN PRN Reason: Pain, severe (8-10) Last Admin: 02/04/19 14:47 Dose: 1 mg Lorazepam (Ativan) 1 mg IVP Q2H PRN PRN Reason: Agitation Last Admin: 02/03/19 09:20 Dose: 1 mg Lorazepam (Ativan) 0.5 mg IVP Q6H [facility] Last Admin: 02/04/19 14:40 Dose: 0.5 mg Ondansetron HCl (Zofran Inj) 8 mg IVP Q6 PRN PRN Reason: Nausea/Vomiting Last Admin: 02/04/19 14:39 Dose: 8 mg Scopolamine (Transderm-Scop) 1 patch TD Q3D [facility] Last Admin: 02/03/19 14:12 Dose: 1 patch Simethicone (Mylicon Chew Tab) 80 mg PO QID [facility] Last Admin: 02/04/19 17:21 Dose: Not Given Attending/Attestation - Attestation I have personally seen and examined this patient.: Yes I have fully participated in the care of the patient.: Yes I have reviewed all pertinent clinical information, including history, physical exam and plan: Yes Notes (Text): Patient seen, examined and case discussed with day-time resident. Patient is under [facility] care inpatient. Comfort measures DNR/DNI Hospice nursing suggested to add Ativan, Simethicone and escobedo. Patient cannot tolerate folate due to pain. I met with the patient re-emphasized we are here to help better address her pain and her condition during this process. I have added regular diet since she reports she cannot taste anything. Will continue to monitor. No family present today during my encounter.
[2019-02-04] MEDS: Simethicone 80 mg Chewtab PO SCH ×3 (17:20→21:19)
--- NOTE | 2019-02-05 00:49 | CP.PCM.PN ---
<Lucho Isbell - Last Filed: 02/05/19 00:46> Subjective - Date & Time of Evaluation Date of Evaluation: 02/05/19 Time of Evaluation: 00:47 - Subjective Subjective: PGY-[address] Gonzalez Patient was seen and examined at bedside, in no acute distress. Patient not complaining of pain at this time. She does continue to appear depressed/sad regarding her condition. Denies chest pain, dyspnea, abdominal pain, fever, headaches, leg pain, and swelling. Objective - Vital Signs/Intake and Output Vital Signs (last 24 hours): Temp Pulse Resp BP Pulse Ox 98.5 F 110 H 20 118/75 100 02/04/19 23:51 02/04/19 23:51 02/04/19 23:51 02/04/19 23:51 02/04/19 23:51 Intake and Output: 02/04/19 02/05/19 18:59 06:59 Intake Total 40 Balance 40 - Medications Medications: Current Medications Acetaminophen (Tylenol 650 Mg Supp) 650 mg [place] Q6 PRN PRN Reason: Fever >100.4 F Fentanyl (Duragesic) 1 patch TD Q72H [facility] Last Admin: 02/02/19 18:34 Dose: Not Given Hydromorphone HCl (Dilaudid) 1 mg IVP Q4 PRN PRN Reason: Pain, severe (8-10) Last Admin: 02/05/19 00:32 Dose: 1 mg Lorazepam (Ativan) 1 mg IVP Q2H PRN PRN Reason: Agitation Last Admin: 02/03/19 09:20 Dose: 1 mg Lorazepam (Ativan) 0.5 mg IVP Q6H [facility] Last Admin: 02/04/19 19:45 Dose: 0.5 mg Ondansetron HCl (Zofran Inj) 8 mg IVP Q6 PRN PRN Reason: Nausea/Vomiting Last Admin: 02/04/19 19:45 Dose: 8 mg Scopolamine (Transderm-Scop) 1 patch TD Q3D [facility] Last Admin: 02/03/19 14:12 Dose: 1 patch Simethicone (Mylicon Chew Tab) 80 mg PO QID [facility] Last Admin: 02/04/19 21:19 Dose: Not Given - Head Exam Head Exam: ATRAUMATIC - Eye Exam Eye Exam: EOMI - ENT Exam ENT Exam: Mucous Membranes Dry - Respiratory Exam Respiratory Exam: Clear to Ausculation Bilateral, NORMAL BREATHING PATTERN. absent: Rhonchi, Wheezes - Cardiovascular Exam Cardiovascular Exam: REGULAR RHYTHM, +S1, +S2 - GI/Abdominal Exam GI & Abdominal Exam: Distended, Soft, Normal Bowel Sounds - Extremities Exam Extremities Exam: absent: Pedal Edema, Tenderness - Neurological Exam Neurological Exam: Alert, Awake, Oriented x3 - Psychiatric Exam Psychiatric exam: Depressed - Skin Skin Exam: Dry, Intact Assessment and Plan - Assessment and Plan (Free Text) Assessment: 68 year old female with PMHx metastatic uterine CA presents with increasing pain from her cancer. Accepted to [facility]. Plan: Metastatic uterine CA * Imaging during last admission revealed: Increasing widespread hepatic metastasis. Extensive intraperitoneal metastasis with numerous ventral hernias through which protrudes numerous metastatic deposits. Probable necrotic mass in the cul-de-sac with some gas as well. This is minimally increased in size from 01/10/2019. Differential diagnosis would include necrotic neoplasm or abscess. Status post hysterectomy. Cholelithiasis without evidence of cholecystitis. Ascites. * Comfort measures * Medications: * Zofran 8mg Q6 PRN * Simethicone 80mg PO QID * Scopolamine patch Q72 hours * Dilaudid 1mg IVP Q4 PRN * Ativan 0.5mg PO IV Q6h * Ativan 1mg Q2 PRN * Fentanyl 1 patch QD Q72 Prophylaxis * DVT contraindicated secondary to anemia * Diet, regular * Ensure Assessment and plan d/w Dr. Lisa Isbell, PGY-1 <Sara Gonzalez V - Last Filed: 02/05/19 13:11> Objective - Vital Signs/Intake and Output Vital Signs (last 24 hours): Temp Pulse Resp BP Pulse Ox 98.5 F 112 H 20 117/81 99 02/05/19 07:27 02/05/19 07:27 02/05/19 07:27 02/05/19 07:27 02/05/19 07:27 Intake and Output: 02/05/19 02/05/19 06:59 18:59 Intake Total 40 Balance 40 - Medications Medications: Current Medications Acetaminophen (Tylenol 650 Mg Supp) 650 mg [place] Q6 PRN PRN Reason: Fever >100.4 F Fentanyl (Duragesic) 1 patch TD Q72H [facility] Last Admin: 02/02/19 18:34 Dose: Not Given Hydromorphone HCl (Dilaudid) 1 mg IVP Q4 PRN PRN Reason: Pain, severe (8-10) Last Admin: 02/05/19 12:05 Dose: 1 mg Lorazepam (Ativan) 1 mg IVP Q2H PRN PRN Reason: Agitation Last Admin: 02/03/19 09:20 Dose: 1 mg Lorazepam (Ativan) 0.5 mg IVP Q6H [facility] Last Admin: 02/05/19 12:12 Dose: Not Given Ondansetron HCl (Zofran Inj) 8 mg IVP Q6 PRN PRN Reason: Nausea/Vomiting Last Admin: 02/05/19 12:05 Dose: 8 mg Scopolamine (Transderm-Scop) 1 patch TD Q3D [facility] Last Admin: 02/03/19 14:12 Dose: 1 patch Simethicone (Mylicon Chew Tab) 80 mg PO QID [facility] Last Admin: 02/05/19 09:28 Dose: 80 mg Attending/Attestation - Attestation I have personally seen and examined this patient.: Yes I have fully participated in the care of the patient.: Yes I have reviewed all pertinent clinical information, including history, physical exam and plan: Yes Notes (Text): Patient seen, examined, and case discussed with medical staffing coordinator. No family present at bedside. Continue comfort measures, pain control. DNR/DNI. Patient is admitted under hospice care given metastatic uterine cancer, poor prognosis, abdominal pain secondary to advanced cancer. We will follow-up in the chart (paper) regarding new recommendations from hospice today.
[2019-02-05] MEDS: Simethicone 80 mg Chewtab PO SCH ×4 (09:28→21:12)
--- NOTE | 2019-02-05 19:36 | CP.PCM.PCO ---
Physician Communication Note - Physician Communication Note Physician Communication Note: per hospice recs, d/c fentanyl and start morphine drip @7
[2019-02-05] MEDS: Morphine 100 MG in Sodium Chloride 0.9% 90 ML IV PRN (20:42)
--- NOTE | 2019-02-06 07:46 | CP.PCM.PN ---
<Praveen Felix - Last Filed: 02/06/19 16:16> Subjective - Date & Time of Evaluation Date of Evaluation: 02/06/19 Time of Evaluation: 07:46 - Subjective Subjective: Progress Note for Dr. Jose's service Patient seen and examined at bedside. She is somnolent, on Morphine drip at 7cc/hr IV. She intermittently opens her eyes, but is not complaining of pain. She is not noted to be vomiting. Daughter present at bedside. She is intermittently moaning. Objective - Vital Signs/Intake and Output Vital Signs (last 24 hours): Temp Pulse Resp BP Pulse Ox 99.3 F 116 H 20 106/64 96 02/06/19 04:58 02/06/19 04:58 02/06/19 04:58 02/06/19 04:58 02/06/19 04:58 Intake and Output: 02/06/19 02/06/19 06:59 18:59 Intake Total 106 Balance 106 - Medications Medications: Current Medications Acetaminophen (Tylenol 650 Mg Supp) 650 mg [place] Q6 PRN PRN Reason: Fever >100.4 F Hydromorphone HCl (Dilaudid) 1 mg IVP Q4 PRN PRN Reason: Pain, severe (8-10) Last Admin: 02/05/19 12:05 Dose: 1 mg Morphine Sulfate 100 mg/ (Sodium Chloride) 100 mls @ 7 mls/hr IV .[id number] PRN; Protocol PRN Reason: Pain, severe (8-10) Last Admin: 02/05/19 20:42 Dose: 7 mls/hr Lorazepam (Ativan) 1 mg IVP Q2H PRN PRN Reason: Agitation Last Admin: 02/03/19 09:20 Dose: 1 mg Lorazepam (Ativan) 0.5 mg IVP Q6H JENIFFER Last Admin: 02/06/19 05:57 Dose: 0.5 mg Ondansetron HCl (Zofran Inj) 8 mg IVP Q6 PRN PRN Reason: Nausea/Vomiting Last Admin: 02/05/19 12:05 Dose: 8 mg Scopolamine (Transderm-Scop) 1 patch TD Q3D JENIFFER Last Admin: 02/03/19 14:12 Dose: 1 patch Simethicone (Mylicon Chew Tab) 80 mg PO QID [facility] Last Admin: 02/05/19 21:12 Dose: Not Given - Constitutional Appears: Other (Somnolent, resting comfortably with Morphine drip. ) - Head Exam Head Exam: ATRAUMATIC, NORMOCEPHALIC - Eye Exam Eye Exam: PERRL - ENT Exam ENT Exam: Mucous Membranes Dry - Respiratory Exam Respiratory Exam: absent: Rales, Rhonchi, Wheezes, Respiratory Distress, Stridor Additional comments: Labored breathing - Cardiovascular Exam Cardiovascular Exam: Tachycardia, +S1, +S2. absent: Gallop, Rubs, Murmur - GI/Abdominal Exam GI & Abdominal Exam: Distended, Firm, Tenderness, Mass - Extremities Exam Extremities Exam: absent: Calf Tenderness, Pedal Edema - Neurological Exam Additional comments: Somnolent, sleeping on Morphine drip Assessment and Plan - Assessment and Plan (Free Text) Assessment: 68 year old female with PMHx metastatic uterine CA presents with increasing pain from her cancer, currently on [facility]. Plan: Metastatic uterine CA Imaging during last admission revealed - Increasing widespread hepatic metastasis. Extensive intraperitoneal metastasis with numerous ventral hernias through which protrudes numerous metastatic deposits. Probable necrotic mass in the cul-de-sac with some gas as well. This is minimally increased in size from 01/10/2019. Differential diagnosis would include necrotic neoplasm or abscess. Status post hysterectomy. Cholelithiasis without evidence of cholecystitis. Ascites. Comfort measures -Zofran 8mg Q6 PRN -Scopolamine patch Q72 hours -Dilaudid 1mg IVP Q4 PRN -Ativan 1mg Q2 PRN -Ativan 0.5mg Q6 JENIFFER -Morphine @ 7cc/hr IV increased to 8cc/hr IV Prophylaxis: -DVT contraindicated secondary to anemia -On NPO diet Case discussed with Dr. Joseph Felix, PGY1 <Joseph Jose - Last Filed: 02/06/19 17:42> Objective - Vital Signs/Intake and Output Vital Signs (last 24 hours): Temp Pulse Resp BP Pulse Ox 98.7 F 131 H 20 104/59 L 90 L 02/06/19 15:58 02/06/19 15:58 02/06/19 15:58 02/06/19 15:58 02/06/19 15:58 Intake and Output: 02/06/19 02/06/19 06:59 18:59 Intake Total 106 56 Balance 106 56 - Medications Medications: Current Medications Acetaminophen (Tylenol 650 Mg Supp) 650 mg PA Q6 PRN PRN Reason: Fever >100.4 F Hydromorphone HCl (Dilaudid) 1 mg IVP Q4 PRN PRN Reason: Pain, severe (8-10) Last Admin: 02/05/19 12:05 Dose: 1 mg Morphine Sulfate 100 mg/ (Sodium Chloride) 100 mls @ 8 mls/hr IV .[id number] PRN; Protocol PRN Reason: Pain, severe (8-10) Lorazepam (Ativan) 1 mg IVP Q2H PRN PRN Reason: Agitation Last Admin: 02/03/19 09:20 Dose: 1 mg Lorazepam (Ativan) 0.5 mg IVP Q6H [facility] Last Admin: 02/06/19 17:03 Dose: Not Given Ondansetron HCl (Zofran Inj) 8 mg IVP Q6 PRN PRN Reason: Nausea/Vomiting Last Admin: 02/05/19 12:05 Dose: 8 mg Scopolamine (Transderm-Scop) 1 patch TD Q3D [facility] Last Admin: 02/06/19 13:00 Dose: 1 patch Simethicone (Mylicon Chew Tab) 80 mg PO QID [facility] Last Admin: 02/06/19 17:02 Dose: Not Given Attending/Attestation - Attestation I have personally seen and examined this patient.: No I have fully participated in the care of the patient.: Yes I have reviewed all pertinent clinical information, including history, physical exam and plan: Yes Notes (Text): 02/06/19 17:38 Please note that this patient was seen at 11:30 AM NO exam was performed considering Hospice status Patient nonresponsive to quetioning. Plan of care of this patient (increasing Morphine rate) was gone over with resident Dr. Felix. Joseph Jose D.O.
[2019-02-06] MEDS: Simethicone 80 mg Chewtab PO SCH ×4 (09:42→21:04)
[2019-02-06] MEDS: Morphine 100 MG in Sodium Chloride 0.9% 90 ML IV PRN ×2 (13:34→18:04)
[2019-02-07 01:35] VITALS: RESP 24
[2019-02-07] MEDS: Morphine 100 MG in Sodium Chloride 0.9% 90 ML IV PRN (04:08)
--- NOTE | 2019-02-07 07:21 | CP.PCM.PN ---
Objective - Vital Signs/Intake and Output Vital Signs (last 24 hours): Temp Pulse Resp BP Pulse Ox 99 F 132 H 24 95/65 L 90 L 02/06/19 23:30 02/06/19 23:30 02/06/19 23:30 02/06/19 23:30 02/06/19 23:30 - Medications Medications: Current Medications Acetaminophen (Tylenol 650 Mg Supp) 650 mg [place] Q6 PRN PRN Reason: Fever >100.4 F Hydromorphone HCl (Dilaudid) 1 mg IVP Q4 PRN PRN Reason: Pain, severe (8-10) Last Admin: 02/05/19 12:05 Dose: 1 mg Morphine Sulfate 100 mg/ (Sodium Chloride) 100 mls @ 8 mls/hr IV .[id number] PRN; Protocol PRN Reason: Pain, severe (8-10) Last Admin: 02/07/19 04:08 Dose: 8 mls/hr Lorazepam (Ativan) 1 mg IVP Q2H PRN PRN Reason: Agitation Last Admin: 02/03/19 09:20 Dose: 1 mg Lorazepam (Ativan) 0.5 mg IVP Q6H [facility] Last Admin: 02/07/19 06:04 Dose: Not Given Ondansetron HCl (Zofran Inj) 8 mg IVP Q6 PRN PRN Reason: Nausea/Vomiting Last Admin: 02/05/19 12:05 Dose: 8 mg Scopolamine (Transderm-Scop) 1 patch TD Q3D [facility] Last Admin: 02/06/19 13:00 Dose: 1 patch Simethicone (Mylicon Chew Tab) 80 mg PO QID [facility] Last Admin: 02/06/19 21:04 Dose: Not Given
[2019-02-07 07:42] VITALS: BP 74/49; PULSE 137; TEMP 102.5; O2SAT 74
--- NOTE | 2019-02-07 08:10 | CP.PCM.PRO ---
<Juan Manuel Nesbitt - Last Filed: 02/07/19 08:10> Pronouncement of Note - Clinical Findings Physical Exam: No Response Verbal/Painful Stimuli, Absent Peripheral Pulses{Carotid & Femoral}, Absent Heart & Breath Sounds, No Pupillary Light Reflex, No Corneal Reflex, Pupils Fixed & Dilated, Absence of Vital Signs - Pronouncement Time Time of Pronouncement of : 08:08 <Joseph Jose - Last Filed: 02/07/19 08:40> Pronouncement of Note - Notifications Pronouncement Notifications: Family Notified (Daughter Jasmine was at bedside. Certificate completed in MD EDRS System and copy placed in chart. Corporate Operations Compliance Manager Gabriela was notified and she is on her way to speak with Daughter Jasmine. Nurse Lizbeth was updated.) Investigation Manager Notified: No - N.Mahin. Certificate [place]: [id number]
--- NOTE | 2019-02-07 08:11 | CP.PCM.DIS ---
<Juan Manuel Nesbitt - Last Filed: 02/07/19 13:43> Provider - Provider Date of Admission: 02/02/19 15:31 Attending physician: Joseph Jose MD Consults: 02/04/19 19:23 Pastoral Care Referral Routine Comment: Physician Instructions: Reason For Exam: hospice care, spiritual and religous support Time Spent in preparation of Discharge (in minutes): 35 Hospital Course - Hospital Course Hospital Course: On admission: Patient is a 68 year old female with history of uterine cancer with diffuse metastasis to liver and abdomen who was admitted for intractable pain from cancer. She was discharged from inpatient to [facility]. Patient had previously undergoing chemotherapy treatments with her oncologist at [facility] in the [place], though she has stopped taking chemo at this point due to her poor prognosis. She vomits brown material intermittently. Her most recent imaging revealed widespread disease with metastasis to liver and abdomen. Hospital course: CTAP of prior admission showed increasing widespread hepatic metastasis. Extensive intraperitoneal metastasis with numerous ventral hernias through which protrudes numerous metastatic deposits. Probable necrotic mass in the cul-de-sac with some gas as well. This is minimally increased in size from 01/10/2019. Differential diagnosis would include necrotic neoplasm or abscess. Status post hysterectomy. Cholelithiasis without evidence of cholecystitis. Ascites. Patient is under [facility] care inpatient. She was started on comfort measures. Pt on 02/07/19. Pronounced at 0808. This is a summary of the hospital course. Please see EMR for full details. Discharge Plan - Follow Up Plan Condition: Disposition: WITH WITHOUT AUTOPSY <Joseph Jose - Last Filed: 02/07/19 17:23> Provider - Provider Date of Admission: 02/02/19 15:31 Attending physician: Joseph Jose MD Consults: 02/04/19 19:23 Pastoral Care Referral Routine Comment: Physician Instructions: Reason For Exam: hospice care, spiritual and religous support Attending/Attestation - Attestation I have personally seen and examined this patient.: Yes I have fully participated in the care of the patient.: Yes I have reviewed all pertinent clinical information, including history, physical exam and plan: Yes Notes (Text): 02/07/19 17:23 Care of this patient was gone over with Dr. Nesbitt. Joseph Jose D.O.
== END 2019-02-07 08:08 | DRG 436 ==
LOC: C.3T 15:31
PROVIDERS: ADMIT Family Medicine; ATTEND Family Medicine
DX: C78.7 Secondary malignant neoplasm of liver and intrahepatic bile duct (principal); C78.6 Secondary malignant neoplasm of retroperitoneum and peritoneum; R18.8 Other ascites; G89.3 Neoplasm related pain (acute) (chronic); C55 Malignant neoplasm of uterus, part unspecified; K43.9 Ventral hernia without obstruction or gangrene; K80.20 Calculus of gallbladder without cholecystitis without obstruction; Z51.5 Encounter for palliative care; Z66 Do not resuscitate; Z90.710 Acquired absence of both cervix and uterus